=== PATIENT | male | born 1980 | race Hispanic/Latino ===

== ENCOUNTER 2016-09-19 14:28 | Emergency (ER) | payer OTHER ==
[~2016-09-19] VITALS: Ht 157.5 cm; Wt 127.0 kg
--- NOTE | 2016-09-19 16:21 | ED GENERAL ADULT ---
History of Present Illness General Chief Complaint: General Adult Stated Complaint: CVS TOLD PT BP IS HIGH COME TO ED Source: patient Exam Limitations: no limitations Allergies Coded Allergies: NO KNOWN ALLERGIES (03/10/12) Reconcile Medications Azithromycin 250 MG TABLET 1 DP PO AD sinusitis 2 the first day followed by 1 for days 2-5 Labetalol HCl 200 MG TABLET 1 TAB PO BID hypertension Triage Note: SENT BY [facility] FOR HTN, (DIASTOLIC 120) PT HERE FOR NASAL CONGESTION, R EAR PAIN X 2 WEEKS, WITH WORSENING COUGH. Triage Nurses Notes Reviewed? yes HPI: This patient is a 36-year-old male presents to the emergency department today sent in by the [facility] for evaluation of elevated blood pressure, diastolic blood pressure reported to be 120. The patient reported that he went to the [facility] originally for evaluation of cough and left ear pain. The patient reported that approximately 2 weeks ago he started having right ear pain and was diagnosed with an ear infection. At that time he also had a cough productive of green sputum. He reported that he was started on an antibiotic which she finished last Thursday. He reported that the pain in his right ear resolved, but on Thursday he noticed pain in his left ear which gets up to a 7 out of 10, worse when he coughs. He reported that the pain is constant and nonradiating. The patient reported that his cough is currently dry and nonproductive. He did report nasal congestion. He reported that prior to his symptoms beginning 2 weeks ago, he was waking up in the middle the night with an occipital headache, but nothing over the last 2 weeks. He denied any visual changes, jaw pain, arm pain, numbness or tingling in his extremities, chest pain , difficulty breathing, abdominal pain, nausea, vomiting, constipation, diarrhea , or any other associated symptoms. (KALA RUSSELL,JORDAN) Vital Signs & Intake/Output Vital Signs & Intake/Output Vital Signs Date Time Temp Pulse Resp B/P Pulse O2 O2 Flow FiO2 Ox Delivery Rate 09/19 1912 92 138/86 09/19 1846 92 158/114 09/19 1802 97.1 98 16 168/116 09/19 1719 98 16 168/116 98 Room Air 09/19 1615 97.1 102 16 152/118 98 Room Air 09/19 1613 98 Room Air 09/19 1522 170/82 09/19 1519 98.5 101 18 166/119 94 Room Air Past History Travel History Traveled to [place] past 21 day No Medical History Any Pertinent Medical History? see below for history Neurological: NONE EENT: NONE Cardiovascular: NONE Respiratory: NONE Gastrointestinal: NONE Hepatic: NONE Renal: NONE Musculoskeletal: NONE Psychiatric: NONE Endocrine: NONE History of CDIFF: No Isolation History: Standard Surgical History Surgical History: non-contributory Psychosocial History What is your primary language Guyanese Tobacco Use: Current Daily Use Daily Tobacco Use Amount/Type: => 5 Cigarettes daily ETOH Use: occasional use Family History Hx Contributory? No (JORDAN ARMENDARIZ PA-C) Review of Systems Review of Systems Constitutional: Reports: no symptoms. EENTM: Reports: see HPI. Respiratory: Reports: see HPI. Cardiovascular: Reports: no symptoms. GI: Reports: no symptoms. Genitourinary: Reports: no symptoms. Musculoskeletal: Reports: no symptoms. Skin: Reports: no symptoms. Neurological/Psychological: Reports: see HPI. All Other Systems: Reviewed and Negative (JORDAN ARMENDARIZ PA-C) Physical Exam Physical Exam General Appearance: well developed/nourished, no apparent distress, alert, awake Comments: Well-developed well-nourished person in no acute distress HEENT: Normal EENT exam, head normocephalic, no tenderness to palpation over the scalp, moist mucous membranes PERRLA bilaterally. No papilledema on funduscopic examination bilaterally Mild pharyngeal injection with no oropharyngeal edema or lesions. No uvular shift or tonsillar exudates. No drooling or trismus Neck: Supple, no lymphadenopathy Back: Normal inspection Cardiovascular: Regular rate and rhythm with no murmurs, rubs, or gallops. No carotid bruits or JVD Respiratory: Chest nontender. No respiratory distress. Breath sounds clear to auscultation bilaterally with no wheezes, rales, or rhonchi Extremity: Normal and equal pulses Neuro: Alert oriented x3, cranial nerves II through XII grossly intact. Skin: No appreciable rash on exposed skin, skin is warm and dry. Psych: Mood and affect is normal Core Measures ACS in differential dx? Yes CVA/TIA Diagnosis: No Severe Sepsis Present: No Septic Shock Present: No (JORDAN ARMENDARIZ PA-C) Progress Differential Diagnoses I considered the following diagnoses in my evaluation of the patient: [Otitis media, otitis externa, mastoiditis, sinusitis, viral syndrome, ACS, hypertension , hypertensive urgency, hypertensive crisis, PE, strep pharyngitis] Diagnostic Imaging: Viewed by Me: Radiology Read. Discussed w/RAD: Radiology Read. CXR Impression: PATIENT: KEAL SINGH PRESENT AGE: 36 PATIENT ACCOUNT NO: [id number] : 81 LOCATION: [facility] ORDERING PHYSICIAN: JORDAN ARMENDARIZ PA-C SERVICE DATE: 09/19/16 EXAM TYPE: RAD - XRY-CHEST XRAY, PA AND LATERAL EXAMINATION: XR CHEST CLINICAL INFORMATION: Productive cough, hypertension. COMPARISON: None available. TECHNIQUE: PA and lateral views of the chest were obtained. FINDINGS: Exam is somewhat limited due to patient body habitus and technique. The cardiomediastinal silhouette is within normal limits. The lungs and pleural spaces appear clear. There is no evidence of pneumothorax or pulmonary edema. Included osseous structures appear largely unremarkable. IMPRESSION: No acute intrathoracic process is identified. DICTATED BY: EVA MILLER MD DATE/TIME DICTATED:09/19/161706 RN OTOLARYNGOLOGY: TAYLOR DATE/TIME TRANSCRIBED:09/19/161706 CONFIDENTIAL, DO NOT COPY WITHOUT APPROPRIATE AUTHORIZATION. <Electronically signed in Other Vendor System> SIGNED BY: EVA MILLER MD 09/19/161712 Initial ED EKG: normal axis, normal intervals, nonspecific ST T wave chg, sinus tachycardia, 100 bpm, ST abnormality in lead V3 Comments: 09/19/2016 5:57:27 PM: Troponin level not elevated. No increased white blood cell count. Rapid strep swab negative for strep pharyngitis. Patient is currently being given by mouth labetalol. Discussed this patient with Dr. Suazo. Reviewed this patient's EKG with Dr. Suazo as I didn't notice an abnormality in lead V3. Dr. Suazo discussed with me that this is likely a J-point abnormality and not true ST segment elevation. The patient is currently resting comfortably on the stretcher and in no acute distress. We will try to lower this patient's blood pressure and give him outpatient medication as well as follow-up with a hoop punch operator helper for stress test, echocardiogram, and possible hypertensive maintenance medication. (KALA RUSSELL,JORDAN) Plan of Care: Orders Procedure Date/time Status THROAT CULTURE W/QUICK STREP 01/27 1620 Active TROPONIN LEVEL 09/19 1615 Complete COMPREHENSIVE METABOLIC PANEL 09/19 1615 Complete CBC WITHOUT DIFFERENTIAL 09/19 161 Complete EKG 09/19 1529 Active Laboratory Tests 09/19/16 1616: Anion Gap 10, Estimated GFR > 60, BUN/Creatinine Ratio 12.5, Glucose 141 H, Calcium 8.9, Total Bilirubin 0.5, AST 27, ALT 51, Alkaline Phosphatase 94, Troponin I 0.02, Total Protein 6.8, Albumin 3.8, Globulin 3.0, Albumin/Globulin Ratio 1.3, CBC w Diff NO MAN DIFF REQ, RBC 5.67, MCV 85.2, MCH 28.6, RDW 14.1, MPV 8.1, Gran % 61.9, Lymphocytes % 29.5, Monocytes % 7.0, Eosinophils % 1.2, Basophils % 0.4, Absolute Granulocytes 5.1, Absolute Lymphocytes 2.4, Absolute Monocytes 0.6, Absolute Eosinophils 0.1, Absolute Basophils 0, PUBS MCHC 33.6 Departure Departure Disposition: HOME OR SELF CARE Condition: Stable Clinical Impression Primary Impression: Hypertension Qualifiers: Hypertension type: unspecified secondary hypertension Qualified Code: I15.9 - Secondary hypertension, unspecified Secondary Impressions: Sinusitis Qualifiers: Sinusitis location: unspecified location Chronicity: unspecified Qualified Code: J32.9 - Chronic sinusitis, unspecified Referrals: PATIENT HAS NO PRIMARY CARE DR (PCP/Family) EM RASCON MD Additional Instructions: Take antibiotic as prescribed. Take medication for blood pressure as prescribed. Please call the hoop punch operator helper whose information has been provided to you for further evaluation; you will likely need to be on a medication to control your blood pressure long-term. Please return for any worsening symptoms or concerns. Departure Forms: Customer Survey General Discharge Information Prescriptions: Current Visit Scripts Azithromycin 1 DP PO AD #6 TAB 2 the first day followed by 1 for days 2-5 Labetalol HCl 1 TAB PO BID #14 TAB (JORDAN ARMENDARIZ PA-C) PA/[employer] BUSINESS OBJECTS CONSULTANT Co-Sign Statement Statement: ED Attending supervision documentation- [] I saw and evaluated the patient. I have also reviewed all the pertinent lab results and diagnostic results. I agree with the findings and the plan of care as documented in the PA's/S[employer] BUSINESS OBJECTS CONSULTANT's documentation. [x] I have reviewed the ED Record and agree with the PA's/S[employer] BUSINESS OBJECTS CONSULTANT's documentation. [] Additions or exceptions (if any) to the PAs/S[employer] BUSINESS OBJECTS CONSULTANT's note and plan are summarized below: [] (MELI LOPEZ,VALE Cruz) Critical Care Note Critical Care Note Critical Care Time: non-applicable (KALA RUSSELL,JORDAN)
[2016-09-19 16:25] LABS: ABSOLUTE BASOPHIL COUNT 0 /CUMM (0.0-0.2); ABSOLUTE EOSINOPHIL COUNT 0.1 /CUMM (0.0-0.7); ABSOLUTE GRANULOCYTE CT 5.1 /CUMM (1.4-6.5); ABSOLUTE LYMPH COUNT 2.4 /CUMM (1.2-3.4); ABSOLUTE MONOCYTE COUNT 0.6 /CUMM (0.10-0.60); BASOPHIL % 0.4 % (0.0-2.0); EOSINOPHIL % 1.2 % (0-5); GRANULOCYTE % 61.9 % (42.2-75.2); HEMATOCRIT 48.3 % (42-52); MEAN CORPUSCULAR HGB 28.6 PG (27.0-31.0); MEAN CORPUSCULAR HGB CONC 33.6 G/DL (33.0-37.0); MEAN CORPUSCULAR VOLUME 85.2 FL (80.0-94.0); MEAN PLATELET VOLUME 8.1 FL (7.4-10.4); PLATELET COUNT 279 /CUMM (130-400); RBC DISTRIBUTION WIDTH 14.1 % (11.5-14.5); RED BLOOD CELL CT 5.67 /CUMM (4.70-6.10); WHITE BLOOD CELL COUNT 8.3 /CUMM (4.8-10.8)
--- NOTE | 2016-09-19 17:13 | RADIOLOGY REPORT ---
EXAMINATION: XR CHEST CLINICAL INFORMATION: Productive cough, hypertension. COMPARISON: None available. TECHNIQUE: PA and lateral views of the chest were obtained. FINDINGS: Exam is somewhat limited due to patient body habitus and technique. The cardiomediastinal silhouette is within normal limits. The lungs and pleural spaces appear clear. There is no evidence of pneumothorax or pulmonary edema. Included osseous structures appear largely unremarkable. IMPRESSION: No acute intrathoracic process is identified.
[2016-09-19 19:12] VITALS: BP 138/86
[2016-09-19] MEDS ORDERED: LABETALOL HCL200 M1 PO (19:20)
[2016-09-19] MEDS ORDERED: AZITHROMYCIN250 M1 PO (19:20)
== END 2016-09-19 19:39 ==
LOC: ERH 14:28
PROVIDERS: Physician Assistant
DX: I10 Essential (primary) hypertension (principal); J32.9 Chronic sinusitis, unspecified; Z72.0 Tobacco use
CPT/HCPCS: 93005; 93010

== ENCOUNTER 2016-10-23 16:54 | Emergency (ER) | payer OTHER ==
[~2016-10-23] VITALS: Ht 157.5 cm; Wt 127.0 kg
[~2016-10-23 16:54] MED LIST: AZITHROMYCIN250 M1 PO; LABETALOL HCL200 M1 PO
--- NOTE | 2016-10-23 17:49 | ED INFLUENZA/URI COMPLAINT ---
History of Present Illness General Chief Complaint: Upper Respiratory Sx/Fever Stated Complaint: BODYACHES, COUGH, CONGESTION Source: patient Exam Limitations: no limitations Vital Signs & Intake/Output Vital Signs & Intake/Output Vital Signs Date Time Temp Pulse Resp B/P Pulse O2 O2 Flow FiO2 Ox Delivery Rate 10/23 1804 100.1 103 24 146/62 95 Room Air 10/23 1742 Room Air 10/23 1702 100.0 109 26 168/104 94 Room Air Allergies Coded Allergies: NO KNOWN ALLERGIES (10/23/16) Reconcile Medications Albuterol Sulfate (Ventolin Hfa) 90 MCG HFA.AER.AD 2 PUF INH Q4-6 PRN PRN SHORTNESS OF BREATH Azithromycin (Zithromax) 500 MG TABLET 1 TAB PO DAILY BRONCHITIS Azithromycin 250 MG TABLET 1 DP PO AD sinusitis 2 the first day followed by 1 for days 2-5 Benzonatate (Tessalon Perle) 100 MG CAPSULE 1 CAP PO TID PRN COUGH Labetalol HCl 200 MG TABLET 1 TAB PO BID hypertension Methylprednisolone. (Medrol) 4 MG TAB.DS.PK 1 DP PO AD INFLAMMATION 6 on day 1 then reduce by one tablet daily until gone Robitussin AC (Guaifenesin-Codeine Syrup) 200 MG-20 MG/10 ML LIQUID 10 ML PO QPM PRN COUGH Triage Note: TRIAGE: PT TO ER C/C PRODUCTIVE COUGH WITH WHITE PHLEGM REPORTED, FEVER, BODY ACHES. X 2 DAYS. LAST DOSE OF TYLENOL 08:00. TEMP 100.0 AT TRIAGE. Triage Nurses Notes Reviewed? yes Onset: Gradual Timing: recent history Severity: moderate Severity Numbers: 5 HPI: Patient is a 36-year-old male who presents emergency room with a 2 DAY history of gradual onset of productive white cough, sore throat, fevers and chills, pleuritic chest pain. Patient is an every day smoker. Denies any similar sick contacts. Denies any chest pain and arm pain jaw pain Positive for body aches Patient can tolerate by mouth Past History Travel History Traveled to [place] past 21 day No Medical History Any Pertinent Medical History? 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 No Review of Systems Review of Systems Constitutional: Reports: see HPI, chills, fever. EENTM: Reports: see HPI. Respiratory: Reports: see HPI, cough. Cardiovascular: Reports: no symptoms. GI: Reports: no symptoms. Genitourinary: Reports: no symptoms. Musculoskeletal: Reports: see HPI. Skin: Reports: no symptoms. Neurological/Psychological: Reports: no symptoms. Hematologic/Endocrine: Reports: no symptoms. Immunologic/Allergic: Reports: no symptoms. All Other Systems: Reviewed and Negative Physical Exam Physical Exam General Appearance: no apparent distress, alert Ears, Nose, Throat: normal ENT inspection, moist mucous membrane, hearing grossly normal, Tympanic normal, pharynx normal Comments: Well-developed well-nourished person in no acute distress HEENT: Normal EENT exam, extraocular motion intact, no nystagmus. Pupils equally round and reactive to light and accommodation. Nose is atraumatic. External auditory canal and Tympanic membranes clear. Pharynx normal. No swelling or edema. Neck: Supple, no lymphadenopathy, normal range of motion without pain or tenderness Back: Nontender, no CVA tenderness. Cardiovascular: Regular rate and rhythms no murmurs rubs or gallops, normal JVP Respiratory: Chest nontender. No respiratory distress.breath sounds clear to auscultation bilaterally Abdomen: Soft, nontender nondistended, no appreciable organomegaly. Normal bowel sounds. No ascites Extremity: No edema, no calf tenderness to palpation, normal and equal pulses. Neuro: Alert oriented x3, motor sensory normal, Skin: No appreciable rash on exposed skin, skin is warm and dry. Psych: Mood and affect is normal, memory and judgment is normal. Core Measures Severe Sepsis Present: No Septic Shock Present: No Progress Differential Diagnosis: influenza, meningitis, neutropenia, otitis, pneumonia, pharyngitis, sinusitis Plan of Care: Orders Procedure Date/time Status RAPID VIRAL INFLUENZA A 10/23 1706 Complete Microbiology 10/23 1709 NASOPHARYN: Influenza Virus A & B Rapid Smear - COMP Patient was noted to have cough and low-grade fever influenza test was negative. Patient will be treated for concerns of bronchitis. Clear lungs auscultation. Nontoxic-appearing (QUIQUE MACK,HUBER) Initial ED EKG: none Departure Departure Disposition: HOME OR SELF CARE Condition: Stable Clinical Impression Primary Impression: Upper respiratory infection Referrals: PATIENT HAS NO PRIMARY CARE DR (PCP/Family) Additional Instructions: As discussed begin drinking plenty of water for hydration. Begin over-the- counter Tylenol for fevers and Motrin for pain as directed. Begin the prescription for Tessalon Perles for cough, Robitussin with codeine for cough and Medrol Dosepak for inflammation. Begin the prescription of azithromycin for the full course and Ventolin inhaler for shortness of breath. If symptoms worsen return to emergency room. If no better on Thursday follow-up with your primary care doctor. Prescription is waiting a [facility] pharmacy Departure Forms: Customer Survey General Discharge Information Prescriptions: Current Visit Scripts Benzonatate (Tessalon Perle) 1 CAP PO TID PRN COUGH #21 CAP Robitussin AC (Guaifenesin-Codeine Syrup) 10 ML PO QPM PRN COUGH #100 ML Azithromycin (Zithromax) 1 TAB PO DAILY #5 TAB Albuterol Sulfate (Ventolin Hfa) 2 PUF INH Q4-6 PRN PRN SHORTNESS OF BREATH #1 INHAL Methylprednisolone. (Medrol) 1 DP PO AD #1 DP 6 on day 1 then reduce by one tablet daily until gone
[2016-10-23 18:04] VITALS: BP 146/62
[2016-10-23] MEDS ORDERED: GUAIFENESIN-COD10 ML PO (18:08)
[2016-10-23] MEDS ORDERED: MEDROL4 M2 PO (18:08)
[2016-10-23] MEDS ORDERED: VENTOLIN HFA18 GM INH (18:08)
[2016-10-23] MEDS ORDERED: ZITHROMAX500 M2 PO (18:08)
[2016-10-23] MEDS ORDERED: TESSALON PERLE100 M1 PO (18:08)
== END 2016-10-23 18:27 ==
LOC: ERH 16:54
DX: J06.9 Acute upper respiratory infection, unspecified (principal); Z72.0 Tobacco use
CPT/HCPCS: 87804; 87804-59

== ENCOUNTER 2018-01-01 09:48 | Emergency (ER) | payer OTHER ==
[~2018-01-01] VITALS: Ht 157.5 cm; Wt 121.6 kg
[~2018-01-01 09:48] MED LIST changes: +GUAIFENESIN-COD10 ML PO; +LISINOPRIL10 M1 PO; +MEDROL4 M2 PO; +NORVASC10 M1 PO; +TESSALON PERLE100 M1 PO; +VENTOLIN HFA18 GM INH; +ZITHROMAX500 M2 PO
[2018-01-01 09:52] VITALS: BP 194/139
--- NOTE | 2018-01-01 10:52 | ED DYSPNEA/ASTHMA COMPLAINT ---
History of Present Illness General Chief Complaint: Wheezing/Asthma Stated Complaint: INCREASE IN ASTHMA SYMPTOMS Source: patient Exam Limitations: no limitations Vital Signs & Intake/Output Vital Signs & Intake/Output Vital Signs Date Time Temp Pulse Resp B/P B/P Pulse O2 O2 Flow FiO2 Mean Ox Delivery Rate 01/01 1042 96 Room Air Room Air 01/01 0952 97.0 95 20 194/139 95 Room Air Room Air Allergies Coded Allergies: No Known Allergies (01/01/18) Reconcile Medications No Known Home Medications Triage Note: PT TO ED FOR C/C OF DIFFICULTY BREATHING SINCE YESTERDAY. DENIES COUGH, FEVER, CHILLS. HAD SOME CHEST PAIN THIS MORNING AROUND 0300, TOOK "ADULT ASPIRIN" AND PAIN IS BETTER. CURRENTLY ONLY HAS PAIN ON PALPATION. O2 SAT 95% IN TRIAGE. Triage Nurses Notes Reviewed? yes HPI: Patient presents for evaluation of worsening moderate to severe shortness of breath secondary to asthma over the past 2 days. Patient states he got worse overnight and included wheezing and chest pain, symptoms typical of his asthma. He denies any associated fever or cold symptoms. He states due to a loss of his insurance he has been unable to refill his prescriptions for his asthma medication. In addition he states he is unable to take his hypertension medicines and his diabetes medicines. Patient's shortness of breath worsens with exertion and nothing seems to make him feel better at this point. Past History Travel History Traveled to [place] past 21 day No Medical History Any Pertinent Medical History? 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 No Review of Systems Review of Systems Constitutional: Reports: no symptoms. EENTM: Reports: no symptoms. Respiratory: Reports: see HPI. Cardiovascular: Reports: no symptoms. GI: Reports: no symptoms. Genitourinary: Reports: no symptoms. Musculoskeletal: Reports: no symptoms. Skin: Reports: no symptoms. Neurological/Psychological: Reports: no symptoms. Hematologic/Endocrine: Reports: no symptoms. Immunologic/Allergic: Reports: no symptoms. All Other Systems: Reviewed and Negative Physical Exam Physical Exam Respiratory: see below Comments: Gen.: Well-nourished, well-developed, no acute respiratory distress. Head: Normocephalic, atraumatic. Eyes: Normal inspection bilaterally Ears: Normal inspection bilaterally Nose: Normal inspection Throat/mouth : Moist mucosa Neck: Supple, full range of motion, no goiter Heart: Regular rate and rhythm, no murmurs rubs or gallops Lungs: Clear to auscultation bilaterally with normal air entry Chest: Nontender Back: Normal range of motion Abdomen: Soft, nontender, nondistended, normal bowel sounds Extremities: Normal range of motion grossly, equal radial pulses, no cyanosis clubbing or edema Neurologic: Cranial nerves grossly intact, speech is clear Skin: warm and dry Psychiatric: Calm, cooperative, no apparent delusions or hallucinations Core Measures ACS in differential dx? No CVA/TIA Diagnosis No Sepsis Present: No Sepsis Focused Exam Completed? No Progress Differential Diagnosis: asthma, pneumonia, bronchitis, viral syndrome Plan of Care: Orders Procedure Date/time Status EKG 01/01 955 Active Initial ED EKG: none Comments: Patient declined evaluation and/or treatment in the emergency department due to financial considerations. Departure Departure Disposition: HOME OR SELF CARE Condition: Stable Clinical Impression Primary Impression: Asthma exacerbation Referrals: Sebastian LOPEZ,Colton Wolfe (PCP/Family) Additional Instructions: Rest, no exertion. Departure Forms: Customer Survey General Discharge Information Prescriptions: Current Visit Scripts Albuterol Sulfate (Proair Hfa) 2 INH INH Q6P PRN ASTHMA #1 INHAL Metformin HCl (Metformin HCl ER) 1 TAB PO DAILY #30 TAB Losartan Potassium 1 TAB PO DAILY #30 TAB Critical Care Note Critical Care Note Critical Care Time: non-applicable
[2018-01-01] MEDS ORDERED: PROAIR HFA8.5 GM INH (11:01)
[2018-01-01] MEDS ORDERED: LOSARTAN POTASS50 M1 PO (11:01)
[2018-01-01] MEDS ORDERED: METFORMIN HCL500 M2 PO (11:01)
== END 2018-01-01 11:07 ==
LOC: ERH 09:48
DX: J45.901 Unspecified asthma with (acute) exacerbation (principal); F17.210 Nicotine dependence, cigarettes, uncomplicated; R06.02 Shortness of breath
CPT/HCPCS: 93005; 93010

== ENCOUNTER 2018-05-09 08:11 | Inpatient (IN) | payer SELFPAY ==
[~2018-05-09] VITALS: Ht 157.5 cm; Wt 138.8 kg
[~2018-05-09 08:11] MED LIST changes: +COZAAR50 M1 PO; +LOSARTAN POTASS50 M1 PO; +METFORMIN HCL500 M2 PO; +PREDNISONE50 M1 PO; +PROAIR HFA8.5 GM INH; +PROVENTIL HFA6.7 GM INH; +ZITHROMAX250 M2 PO
[2018-05-09 09:10] LABS: ABSOLUTE BASOPHIL COUNT 0 /CUMM (0.0-0.2); ABSOLUTE EOSINOPHIL COUNT 0 /CUMM (0.0-0.7); ABSOLUTE GRANULOCYTE CT 7.9 /CUMM (1.4-6.5); ABSOLUTE LYMPH COUNT 1.3 /CUMM (1.2-3.4); ABSOLUTE MONOCYTE COUNT 0.6 /CUMM (0.10-0.60); BASOPHIL % 0.3 % (0.0-2.0); EOSINOPHIL % 0.5 % (0-5); GRANULOCYTE % 79.4 % (42.2-75.2); HEMATOCRIT 47.1 % (42-52); MEAN CORPUSCULAR HGB 27.2 PG (27.0-31.0); MEAN CORPUSCULAR HGB CONC 32.6 G/DL (33.0-37.0); MEAN CORPUSCULAR VOLUME 83.3 FL (80.0-94.0); MEAN PLATELET VOLUME 8.3 FL (7.4-10.4); PLATELET COUNT 260 /CUMM (130-400); RBC DISTRIBUTION WIDTH 15.2 % (11.5-14.5); RED BLOOD CELL CT 5.65 /CUMM (4.70-6.10); WHITE BLOOD CELL COUNT 9.9 /CUMM (4.8-10.8)
--- NOTE | 2018-05-09 10:09 | RADIOLOGY REPORT ---
EXAMINATION: XR CHEST CLINICAL INFORMATION: Cough, shortness of breath, fever and leg edema. COMPARISON: CXR from 09/19/2016 and 04/15/2018. Chest CT from 04/08/2017. TECHNIQUE: 2 views of the chest were obtained. FINDINGS: Lungs are well expanded. The bronchial constantino are thickened, bilaterally. This could be a manifestation of asthma or airway infection, if in the right clinical context. Patchy opacity is present within the right middle lobe, suggestive of pneumonia. No pneumothorax or pleural effusion. Cardiomediastinal silhouette is chronically enlarged. The visualized bones are intact. IMPRESSION: - Bronchial wall thickening in both lungs from inflammation or infection of the airways. - Patchy opacity in right middle lobe is consistent with pneumonia.
--- NOTE | 2018-05-09 10:24 | ED DYSPNEA/ASTHMA COMPLAINT ---
History of Present Illness General Chief Complaint: Wheezing/Asthma Stated Complaint: INCREASE IN ASTHMA SYMPTOMS Source: patient, old records Exam Limitations: no limitations Vital Signs & Intake/Output Vital Signs & Intake/Output Vital Signs Date Time Temp Pulse Resp B/P B/P Pulse O2 O2 Flow FiO2 Mean Ox Delivery Rate 05/09 1217 98.9 88 18 176/108 96 Nasal 3.0L Cannula 05/09 1130 98.2 19 97 Nasal 2.0L Cannula 05/09 1126 105 192/108 05/09 1055 99.0 94 22 196/106 94 Nasal 3.0L Cannula 05/09 0944 98.0 110 26 188/110 94 Nasal 3.0L Cannula 05/09 0943 98.0 05/09 0917 97 Nasal 3.0L Cannula 05/09 0914 96 Nasal 2.0L Cannula 05/09 0825 96 Nasal 2.0L Cannula 05/09 0819 100.0 120 20 170/120 91 Room Air Allergies Coded Allergies: No Known Allergies (01/01/18) Reconcile Medications Albuterol Sulfate (Proventil Hfa) 90 MCG HFA.AER.AD 2 PUF INH Q4 sob Losartan Potassium (Cozaar) 50 MG TABLET 1 TAB PO DAILY HIGH BLOOD PRESSURE Metformin HCl (Metformin HCl ER) 500 MG TAB.ER.24 1 TAB PO DAILY DIABITIES Triage Note: PT TO ED C/O INCREASE IN ASTHMA S/S. C/O PRODUCTIVE COUGH. RA SAT 90%, HEARTRATE 120. PT HAS INHALER AT HOME, HAS USED WITH NO RELIEF. C/O B/L LE SWELLING. O2, SATS UP TO 96%. Triage Nurses Notes Reviewed? yes Onset: Abrupt Duration: day(s): (2-3), constant, continues in ED, getting worse Timing: recent history Severity: moderate, severe Activities at Onset: activity Prior Episodes/Possible Cause: frequent episodes HPI: 38-year-old male history of hypertension, asthma, [id number] diabetes presents for evaluation of cough, fever, shortness of breath and weakness. Patient reports symptoms have been going on for the past 2 or 3 days. He's been using his inhaler at home without any improvement. He started having fevers yesterday and today. He denies any chest pain or hemoptysis. He does note some mild bilateral lower extension edema which she's had in the past. He has no documented history of heart failure. He quit smoking 2 months ago. He states he is posted be taking losartan for his blood pressure but has not yet taken it today. No dizziness or lightheadedness. He is recently treated for an asthma exacerbation a few weeks ago. Cough is productive of green sputum. Past History Travel History Traveled to [place] past 21 day No Medical History Any Pertinent Medical History? 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 No Review of Systems Review of Systems Constitutional: Reports: chills, diaphoresis, fever, malaise, weakness. EENTM: Reports: no symptoms. Respiratory: Reports: see HPI, cough, short of breath, sputum production, wheezing. Cardiovascular: Reports: no symptoms. GI: Reports: no symptoms. Genitourinary: Reports: no symptoms. Musculoskeletal: Reports: no symptoms. Skin: Reports: no symptoms. Neurological/Psychological: Reports: no symptoms. Hematologic/Endocrine: Reports: no symptoms. Immunologic/Allergic: Reports: no symptoms. All Other Systems: Reviewed and Negative Physical Exam Physical Exam General Appearance: well developed/nourished, no apparent distress, alert, awake , obese Head: atraumatic, normal appearance Eyes: Bilateral: normal appearance, PERRL, EOMI. Ears, Nose, Throat: normal pharynx, normal ENT inspection, hearing grossly normal Neck: normal inspection, supple, full range of motion Respiratory: chest non-tender, no respiratory distress, rhonchi, wheezing Cardiovascular: normal peripheral pulses, tachycardia Peripheral Pulses: 2+ radial (R), 2+ radial (L) Gastrointestinal: soft, non-tender Extremities: normal inspection, normal range of motion, no edema Neurologic/Psych: no motor/sensory deficits, awake, alert, oriented x 3, normal gait, normal mood/affect Skin: intact, normal color, warm/dry Core Measures ACS in differential dx? No CVA/TIA Diagnosis No Sepsis Present: No Sepsis Focused Exam Completed? No Progress Differential Diagnosis: asthma, AMI, bronchitis, CHF, COPD, pulmonary embolism, pneumonia, pneumothorax, unstable angina Plan of Care: Orders Procedure Date/time Status Heart Healthy Diet 05/09 D Active Misc Message 05/09 1221 Active ED Holding Orders 05/09 1221 Active Admit to inpatient 05/09 1221 Active Vital Signs 05/09 1221 Active Code Status 05/09 1221 Active Add-on Test (ER Only) 05/09 0906 Active Add-on Test (ER Only) 05/09 0903 Active MAGNESIUM 05/09 0853 Complete D-DIMER 05/09 0853 Complete CULTURE,URINE 05/09 0850 Active BLOOD CULTURE 05/09 0850 Active URINALYSIS 05/09 0850 Active TROPONIN LEVEL 05/09 0850 Complete COMPREHENSIVE METABOLIC PANEL 05/09 0850 Complete CBC WITHOUT DIFFERENTIAL 05/09 0850 Complete B-TYPE NATRIURETIC PEP (BNP) 05/09 0850 Complete EKG 05/09 0846 Active Laboratory Tests 05/09/18 1141: Urine Color Pending, Urine Clarity Pending, Urine pH Pending, Ur Specific [place] Pending, Urine Protein Pending, Urine Ketones Pending, Urine Nitrite Pending, Urine Bilirubin Pending, Urine Urobilinogen Pending, Ur Leukocyte Esterase Pending, Ur Microscopic SEDIMENT EXAMINED, Urine RBC Pending, Urine Hemoglobin Pending, Urine Glucose Pending 05/09/18 0936: Anion Gap 8, Estimated GFR > 60, BUN/Creatinine Ratio 13.8, Glucose 187 H, Calcium 8.3 L, Magnesium 1.6, Total Bilirubin 1.1, AST 27, ALT 34, Alkaline Phosphatase 69, Troponin I 0.04, Mdw-W-Mkzbpdmjwar Pept 2460 H, Total Protein 5.8 L, Albumin 3.2 L, Globulin 2.6, Albumin/Globulin Ratio 1.2 05/09/18 0853: D-Dimer High Sensitivty 321 H, CBC w Diff NO MAN DIFF REQ, RBC 5.65, MCV 83.3, MCH 27.2, MCHC 32.6 L, RDW 15.2 H, MPV 8.3, Gran % 79.4 H, Lymphocytes % 13.4 L, Monocytes % 6.4, Eosinophils % 0.5, Basophils % 0.3, Absolute Granulocytes 7.9 H, Absolute Lymphocytes 1.3, Absolute Monocytes 0.6, Absolute Eosinophils 0 , Absolute Basophils 0 Microbiology 05/09 1141 URINE ROUT: Urine Culture - RECD 05/09 936 BLOOD: Blood Culture - RECD 05/09 908 BLOOD: Blood Culture - RECD Patient is here for evaluation of cough shortness of breath and fever. Initial examination he is tachycardic to 120s oxygen saturation 90% on room air and he has diffuse wheezing and rhonchi. Labs EKG chest x-rays ordered. Patient medicated with DuoNeb IV Solu-Medrol and IV Tylenol. X-rays positive for a pneumonia. Patient was started on Zithromax and ceftriaxone. Blood cultures were ordered. Patient is significantly hypertensive and has not yet taken his medications today. He was given his oral losartan and a dose of IV Vasotec. D-dimer is elevated a CTA was obtained and is negative for PE. Patient was ambulated in the emergency department and is desaturating to 89% on room air he becomes visibly dyspneic. Patient will require admission for IV antibiotics and IV steroids pulmonology consult cardiology consult telemetry IV antihypertensives and medication adjustment case discussed with Dr. Suazo he agrees Diagnostic Imaging: Viewed by Me: Radiology Read. Discussed w/RAD: Radiology Read. Radiology Impression: PATIENT: KAEL SINGH PRESENT AGE: 38 PATIENT ACCOUNT NO: [id number] : 81 LOCATION: [facility] ORDERING PHYSICIAN: Aris MACK SERVICE DATE: 05/09/18 EXAM TYPE: CAT - CTA CHEST-PULMONARY EMBOLISM EXAMINATION: CT ANGIOGRAM OF THE CHEST WITH CONTRAST (CT PULMONARY ANGIOGRAM FOR PE) CLINICAL INFORMATION: Shortness of breath, fever and cough. COMPARISON: Chest CT from 04/08/2017. Prior chest radiographs, including 05/09/2018. TECHNIQUE: Prior to contrast administration, noncontrast localization images were obtained. Subsequently, multidetector volumetric imaging was performed from the thoracic inlet to below the diaphragms following the administration of 95 mL Optiray 320 intravenous contrast. No contrast reaction reported. Sagittal, coronal, and MIP oblique sagittal reformatted images were obtained on the CT workstation, uploaded to PACS, and reviewed. DLP: Total exam dose-length product 917 mGy-cm FINDINGS: QUALITY OF STUDY/CONTRAST BOLUS: Satisfactory. PULMONARY ARTERIES: The pulmonary arteries are normal in size. No embolic filling defects are identified within the main, lobar or segmental vessels. THORACIC AORTA: Normal. LUNGS AND PLEURA: Diffuse thickening of bronchial constantino. Lungs have mosaic attenuation suggestive of air trapping phenomenon from small airways disease. Mild interlobular septal thickening and patchy, hazy opacities in upper lobes. Consolidation with air bronchograms of the lateral segment of the right middle lobe, consistent with pneumonia. Mild atelectasis in medial segment of right middle lobe. Also, opacities of atelectasis and/or consolidation are present in the anterior right lower lobe and left lower lobe extending along the distal left major fissure. Trace right pleural effusion is present. No pneumothorax. CARDIOVASCULAR: The heart size is normal. No inward bowing of the interventricular septum. No pericardial effusion. MEDIASTINUM: Chronic prominence of the mediastinal fat. No mediastinal mass. The esophagus has normal wall thickness. The visualized portion of the thyroid gland is unremarkable. LYMPHATICS: No axillary lymphadenopathy. Mildly lymph nodes at both ju, similar compared to 2016. The largest right hilar lymph node is 1.6 cm short axis dimension, compared to 1.4 cm on 04/08/2017. 1.2 cm right paratracheal lymph node at the level of the top of the aortic arch is stable compared to 04/08/2017. Also, stable appearance of the chronically enlarged lymph nodes in the prevascular space, precarinal area and subcarinal area of the mediastinum. UPPER ABDOMEN: No acute findings. No reflux of contrast into the inferior vena cava. OSSEOUS STRUCTURES: No acute or suspicious osseous abnormality. IMPRESSION: - No evidence of pulmonary embolism. - Chronic and/or recurrent inflammation (or infection) of thickened airway constantino. Query if there is history of asthma. Lungs have mosaic attenuation, suggestive of air trapping phenomenon of small airways disease. Consolidation/pneumonia is present in the the lateral segment of the right middle lobe. Also, opacities from atelectasis and/or pneumonia are present within lower lobes. Trace right pleural effusion. - Chronic hilar and mediastinal lymphadenopathy -- similar in appearance compared to 04/08/2017. DICTATED BY: Philippe Sotomayor MD DATE/TIME DICTATED:09/16/18 / 1103 WATER METER MECHANIC:TAYLOR DATE/TIME TRANSCRIBED:05/09/181102 CONFIDENTIAL, DO NOT COPY WITHOUT APPROPRIATE AUTHORIZATION. CXR Impression: PATIENT: KAEL SINGH PRESENT AGE: 38 PATIENT ACCOUNT NO: [id number] : 81 LOCATION: [facility] ORDERING PHYSICIAN: Aris MACK SERVICE DATE: 05/09/18 EXAM TYPE: RAD - XRY-CHEST XRAY, TWO VIEWS EXAMINATION: XR CHEST CLINICAL INFORMATION: Cough, shortness of breath , fever and leg edema. COMPARISON: CXR from 09/19/2016 and 04/15/2018. Chest CT from 04/08/2017. TECHNIQUE: 2 views of the chest were obtained. FINDINGS: Lungs are well expanded. The bronchial constantino are thickened, bilaterally. This could be a manifestation of asthma or airway infection, if in the right clinical context. Patchy opacity is present within the right middle lobe, suggestive of pneumonia. No pneumothorax or pleural effusion. Cardiomediastinal silhouette is chronically enlarged. The visualized bones are intact. IMPRESSION: - Bronchial wall thickening in both lungs from inflammation or infection of the airways. - Patchy opacity in right middle lobe is consistent with pneumonia. DICTATED BY: Philippe Sotomayor MD DATE/TIME DICTATED:05/09/181001 WATER METER MECHANIC:TAYLOR DATE/ TIME TRANSCRIBED:05/09/181001 CONFIDENTIAL, DO NOT COPY WITHOUT APPROPRIATE AUTHORIZATION. <Electronically signed in Other Vendor System> SIGNED BY: Philippe Sotomayor MD 05/09/18 1009 Initial ED EKG: normal sinus rhythm, no ST T wave changes, left atrial abn Departure Departure Disposition: HOME OR SELF CARE Condition: Stable Clinical Impression Primary Impression: Pneumonia Qualifiers: Pneumonia type: due to unspecified organism Laterality: right Lung location: unspecified part of lung Qualified Code: J18.9 - Pneumonia, unspecified organism Secondary Impressions: Hypertensive urgency Referrals: Patient Has No Primary Care Dr (PCP/Family) Departure Forms: Customer Survey General Discharge Information Admission Note Spoke With: Db Valentin MD Documentation of Exam: Documentation of any treatments & extenuating circumstances including Concerns Regarding Discharge (functional status, medication knowledge or non-compliance, living conditions, etc.) that warrant an admission rather than observation: [ Patient is desaturating to 89% on room air with a diagnosis of asthma and pneumonia. He is also significant hypertensive despite IV and oral medications. He will require admission for IV antibiotics IV steroids DuoNeb serial labs telemetry serial EKGs IV blood pressure control medication adjustment cardiology consult echocardiogram serial chest x-rays] Critical Care Note Critical Care Note Critical Care Time: 75-104 min ED Attending Observation Initial Observation Note: I have seen and personally examined KAEL SINGH on 05/09/18 at 1224. I agree with the current emergency department documentation. The disposition (admission or discharge) is uncertain at this time, he needs a period of observation for the following reason(s): The ED Nurse caring for this patient has been personally informed as to what the patient is being observed for.
--- NOTE | 2018-05-09 11:19 | CT SCAN REPORT ---
EXAMINATION: CT ANGIOGRAM OF THE CHEST WITH CONTRAST (CT PULMONARY ANGIOGRAM FOR PE) CLINICAL INFORMATION: Shortness of breath, fever and cough. COMPARISON: Chest CT from 04/08/2017. Prior chest radiographs, including 05/09/2018. TECHNIQUE: Prior to contrast administration, noncontrast localization images were obtained. Subsequently, multidetector volumetric imaging was performed from the thoracic inlet to below the diaphragms following the administration of 95 mL Optiray 320 intravenous contrast. No contrast reaction reported. Sagittal, coronal, and MIP oblique sagittal reformatted images were obtained on the CT workstation, uploaded to PACS, and reviewed. DLP: Total exam dose-length product 917 mGy-cm FINDINGS: QUALITY OF STUDY/CONTRAST BOLUS: Satisfactory. PULMONARY ARTERIES: The pulmonary arteries are normal in size. No embolic filling defects are identified within the main, lobar or segmental vessels. THORACIC AORTA: Normal. LUNGS AND PLEURA: Diffuse thickening of bronchial constantino. Lungs have mosaic attenuation suggestive of air trapping phenomenon from small airways disease. Mild interlobular septal thickening and patchy, hazy opacities in upper lobes. Consolidation with air bronchograms of the lateral segment of the right middle lobe, consistent with pneumonia. Mild atelectasis in medial segment of right middle lobe. Also, opacities of atelectasis and/or consolidation are present in the anterior right lower lobe and left lower lobe extending along the distal left major fissure. Trace right pleural effusion is present. No pneumothorax. CARDIOVASCULAR: The heart size is normal. No inward bowing of the interventricular septum. No pericardial effusion. MEDIASTINUM: Chronic prominence of the mediastinal fat. No mediastinal mass. The esophagus has normal wall thickness. The visualized portion of the thyroid gland is unremarkable. LYMPHATICS: No axillary lymphadenopathy. Mildly lymph nodes at both ju, similar compared to 04/08/2017. The largest right hilar lymph node is 1.6 cm short axis dimension, compared to 1.4 cm on 04/08/2017. 1.2 cm right paratracheal lymph node at the level of the top of the aortic arch is stable compared to 04/08/2017. Also, stable appearance of the chronically enlarged lymph nodes in the prevascular space, precarinal area and subcarinal area of the mediastinum. UPPER ABDOMEN: No acute findings. No reflux of contrast into the inferior vena cava. OSSEOUS STRUCTURES: No acute or suspicious osseous abnormality. IMPRESSION: - No evidence of pulmonary embolism. - Chronic and/or recurrent inflammation (or infection) of thickened airway constantino. Query if there is history of asthma. Lungs have mosaic attenuation, suggestive of air trapping phenomenon of small airways disease. Consolidation/pneumonia is present in the the lateral segment of the right middle lobe. Also, opacities from atelectasis and/or pneumonia are present within lower lobes. Trace right pleural effusion. - Chronic hilar and mediastinal lymphadenopathy -- similar in appearance compared to 04/08/2017.
--- NOTE | 2018-05-09 12:41 | History & Physical ---
General Information and HPI MD Statement: I have seen and personally examined KAEL SINGH and documented this H&P. The patient is a 38 year old M who presented with a patient stated chief complaint of dyspnea. Source of Information: patient Exam Limitations: no limitations History of Present Illness: 38-year-old male history of hypertension, asthma, [id number] diabetes presents for evaluation of 2-day hx of cough, dyspnea on exertion and weakness. He denies any fever, but endorses some chills. No recent URI or sick contacts. He describes his cough as productive with yellowish sputum. Other symptoms include increased lower extremity swelling and orthopnea in the past which he reports to be subacute for weeeks. He denies chest pain or palpitations. He states that he has been using his albuterol rescue inhaler on a daily basis in the past 1 week. Of note, he has been to [facility] twice in the past 3 months with similar symptoms and was sent home with steroids and nebulizers. He does not f/u with any line prep cook, he denies any episode of asthma exacerbation that required intubation. He was last admitted at [facility] 2016 for dyspnea and chest pressure. Allergies/Medications Allergies: Coded Allergies: No Known Allergies (01/01/18) Home Med list Albuterol Sulfate (Proventil Hfa) 90 MCG HFA.AER.AD 2 PUF INH Q4 sob Losartan Potassium (Cozaar) 50 MG TABLET 1 TAB PO DAILY HIGH BLOOD PRESSURE Metformin HCl (Metformin HCl ER) 500 MG TAB.ER.24 1 TAB PO DAILY DIABITIES Past History Travel History Traveled to [place] past 21 day No Medical History Neurological: NONE EENT: NONE Cardiovascular: hypertension Respiratory: asthma Gastrointestinal: NONE Hepatic: NONE Renal: NONE Musculoskeletal: NONE Psychiatric: NONE Endocrine: DMII Blood Disorders: NONE Cancer(s): NONE DINING HOST/Reproductive: NONE History of MRSA: No History of VRE: No History of CDIFF: No Surgical History Surgical History: none Past Family/Social History Family History Relations & Conditions if any FATHER (MOTHER ( Psychosocial History Services at Home: None ETOH Use: denies use Illicit Drug Use: denies illicit drug use Functional Ability ADLs Independent: dressing, eating, toileting, bathing. Ambulation: independent IADLs Independent: shopping, housework, finances, food prep, telephone, transportation , medication admin. Review of Systems Review of Systems Constitutional: Reports: diaphoresis, malaise. Cardiovascular: Reports: edema. Respiratory: Reports: cough, short of breath, sputum production. GI: Reports: no symptoms. Genitourinary: Reports: no symptoms. Musculoskeletal: Reports: no symptoms. Skin: Reports: no symptoms. Neurological/Psychological: Reports: no symptoms. Hematologic/Endocrine: Reports: no symptoms. Immunologic/Allergic: Reports: no symptoms. All Other Systems: Reviewed and Negative Exam & Diagnostic Data Last 24 Hrs of Vital Signs/I&O Vital Signs Date Time Temp Pulse Resp B/P B/P Pulse O2 O2 Flow FiO2 Mean Ox Delivery Rate 05/09 1355 97.7 87 18 160/74 96 Nasal 2.0L Cannula 05/09 1305 98.4 89 18 145/87 96 Nasal 2.0L Cannula 05/09 1300 102 178/109 05/09 1235 168/108 05/09 1217 98.9 88 18 176/108 96 Nasal 3.0L Cannula 05/09 1130 98.2 19 97 Nasal 2.0L Cannula 05/09 1126 105 192/108 05/09 1055 99.0 94 22 196/106 94 Nasal 3.0L Cannula 05/09 0944 98.0 110 26 188/110 94 Nasal 3.0L Cannula 05/09 0943 98.0 05/09 0917 97 Nasal 3.0L Cannula 05/09 0914 96 Nasal 2.0L Cannula 05/09 0825 96 Nasal 2.0L Cannula 05/09 0819 100.0 120 20 170/120 91 Room Air Intake & Output 05/09 1600 05/09 0800 05/09 0000 Intake Total Output Total 250 Balance -250 Output, Urine 250 Patient 121.563 kg Weight Weight Estimated Measurement Method Physical Exam General Appearance Alert, Oriented X3, Cooperative, mildly diaphoretic, morbidly obese Skin No Breakdown, No Significant Lesion Skin Temp/Moisture Exam: Warm/Dry Sepsis Skin Exam (color): Normal for Ethnicity HEENT Atraumatic, Mucous Membr. moist/pink Neck Supple, No JVD Lymphatic Cervical nl Cardiovascular Normal S1, Normal S2 Lungs mild rhonchi b/l (this after treatment with solumedrol and nebs) Abdomen Normal Bowel Sounds, Soft, No Tenderness Neurological Normal Gait, Normal Speech, Normal Tone, Sensation Intact Extremities No Clubbing, No Cyanosis, No Edema, Normal Pulses, +2 edema b/l Vascular Pulses Symmetrical Sepsis Peripheral Pulse Location: Dorsalis Pedis Sepsis Peripheral Pulse Exam: Normal Sepsis Cap Refill Exam: <2 Sec Last 24 Hrs of Labs/Ulisses: Laboratory Tests 05/09/18 1141: Urinalysis LIGHT H, Urine Color YEL, Urine Clarity CLEAR, Urine pH 6.5, Ur Specific [place] 1.025, Urine Protein >=300 H, Urine Ketones NEG, Urine Nitrite NEG, Urine Bilirubin NEG, Urine Urobilinogen 0.2, Ur Leukocyte Esterase NEG, Ur Microscopic SEDIMENT EXAMINED, Urine RBC 1-3, Urine WBC 3-5 H, Ur Epithelial Cells RARE, Granular Casts FEW H, Urine Mucus RARE, Urine Hemoglobin SMALL H, Urine Glucose NEG 05/09/18 0936: Anion Gap 8, Estimated GFR > 60, BUN/Creatinine Ratio 13.8, Glucose 187 H, Calcium 8.3 L, Magnesium 1.6, Total Bilirubin 1.1, AST 27, ALT 34, Alkaline Phosphatase 69, Troponin I 0.04, Hsd-F-Jbixesaqpla Pept 2460 H, Total Protein 5.8 L, Albumin 3.2 L, Globulin 2.6, Albumin/Globulin Ratio 1.2 05/09/18 0853: D-Dimer High Sensitivty 321 H, CBC w Diff NO MAN DIFF REQ, RBC 5.65, MCV 83.3, MCH 27.2, MCHC 32.6 L, RDW 15.2 H, MPV 8.3, Gran % 79.4 H, Lymphocytes % 13.4 L, Monocytes % 6.4, Eosinophils % 0.5, Basophils % 0.3, Absolute Granulocytes 7.9 H, Absolute Lymphocytes 1.3, Absolute Monocytes 0.6, Absolute Eosinophils 0 , Absolute Basophils 0 Microbiology 05/09 1412 LOWER RESP: Respiratory Culture - ORD 05/09 1412 LOWER RESP: Gram Stain - ORD 05/09 1141 URINE ROUT: Urine Culture - RECD 05/09 936 BLOOD: Blood Culture - RECD 05/09 908 BLOOD: Blood Culture - RECD Diagnostic Data Other Results SERVICE DATE: 05/09/18-1004 EXAM TYPE: CAT - CTA CHEST-PULMONARY EMBOLISM EXAMINATION: CT ANGIOGRAM OF THE CHEST WITH CONTRAST (CT PULMONARY ANGIOGRAM FOR PE) CLINICAL INFORMATION: Shortness of breath, fever and cough. COMPARISON: Chest CT from 04/08/2017. Prior chest radiographs, including 05/09/2018. TECHNIQUE: Prior to contrast administration, noncontrast localization images were obtained. Subsequently, multidetector volumetric imaging was performed from the thoracic inlet to below the diaphragms following the administration of 95 mL Optiray 320 intravenous contrast. No contrast reaction reported. Sagittal, coronal, and MIP oblique sagittal reformatted images were obtained on the CT workstation, uploaded to PACS, and reviewed. DLP: Total exam dose-length product 917 mGy-cm FINDINGS: QUALITY OF STUDY/CONTRAST BOLUS: Satisfactory. PULMONARY ARTERIES: The pulmonary arteries are normal in size. No embolic filling defects are identified within the main, lobar or segmental vessels. THORACIC AORTA: Normal. LUNGS AND PLEURA: Diffuse thickening of bronchial constantino. Lungs have mosaic attenuation suggestive of air trapping phenomenon from small airways disease. Mild interlobular septal thickening and patchy, hazy opacities in upper lobes. Consolidation with air bronchograms of the lateral segment of the right middle lobe, consistent with pneumonia. Mild atelectasis in medial segment of right middle lobe. Also, opacities of atelectasis and/or consolidation are present in the anterior right lower lobe and left lower lobe extending along the distal left major fissure. Trace right pleural effusion is present. No pneumothorax. CARDIOVASCULAR: The heart size is normal. No inward bowing of the interventricular septum. No pericardial effusion. MEDIASTINUM: Chronic prominence of the mediastinal fat. No mediastinal mass. The esophagus has normal wall thickness. The visualized portion of the thyroid gland is unremarkable. LYMPHATICS: No axillary lymphadenopathy. Mildly lymph nodes at both ju, similar compared to 04/08/2017. The largest right hilar lymph node is 1.6 cm short axis dimension, compared to 1.4 cm on 04/08/2017. 1.2 cm right paratracheal lymph node at the level of the top of the aortic arch is stable compared to 04/08/2017. Also, stable appearance of the chronically enlarged lymph nodes in the prevascular space, precarinal area and subcarinal area of the mediastinum. UPPER ABDOMEN: No acute findings. No reflux of contrast into the inferior vena cava. OSSEOUS STRUCTURES: No acute or suspicious osseous abnormality. IMPRESSION: - No evidence of pulmonary embolism. - Chronic and/or recurrent inflammation (or infection) of thickened airway constantino. Query if there is history of asthma. Lungs have mosaic attenuation, suggestive of air trapping phenomenon of small airways disease. Consolidation/pneumonia is present in the the lateral segment of the right middle lobe. Also, opacities from atelectasis and/or pneumonia are present within lower lobes. Trace right pleural effusion. - Chronic hilar and mediastinal lymphadenopathy -- similar in appearance compared to 04/08/2017. DICTATED BY: Philippe Sotomayor MD Assessment/Plan Assessment: 38 yo male with pmhx of diabetes,asthma,HTN, presents with 2-3 day hx of respiratory symptoms (cough,shortness of breath) and is found to have radiological evidence of PNA. He is afebrile albeit a temp of 100.0, with no leukocytosis. His blood pressure is noted to be elevated but without any chest pain or +ve trops,AMS, or vision problems. CT CHEST: - No evidence of pulmonary embolism. - Chronic and/or recurrent inflammation (or infection) of thickened airway constantino. Query if there is history of asthma. Lungs have mosaic attenuation, suggestive of air trapping phenomenon of small airways disease. Consolidation/pneumonia is present in the the lateral segment of the right middle lobe. Also, opacities from atelectasis and/or pneumonia are present within lower lobes. Trace right pleural effusion. - Chronic hilar and mediastinal lymphadenopathy -- similar in appearance compared to 04/08/2017. Impression * Dsypnea on exertion. Even though his PNA and asthma are more likely to cause dsypnea, his symptoms of exertion accompanied by orthopnea,pedal edema and elevated ProBNP is concernig for acute chf. Will need to rule out ACS. * Community acquired PNA. * Hypertension Urgency * Hx of chronic diseases:Asthma, diabetes (last AIC 7.6 one month ago), HTN. Plan Admit to Telemetry for close BP monitoring Carbohydrate diet Restart home Losartan, will maintain a BP drop goal of 20-25% in 24 hrs to avoid precipitiously dropping BP and exposing pt to increase risk of JACOB or stroke. If needed, will use Captopril to lower BP. Echocardiogram Trend troponin and EKGx2 02 supplementation to keep sats above 92% Trc/nebs Azithromycin and Ceftriaxone for CAP Sputum cultures f/u BC x2 Strep pneumo and legionella urine antigen Peak flow measurement q shift after treatments Given the patient clinically is not in acute asthma exacerbation,has tachycardia and elevated BP, and has already rcvd solumedrol 125mg, we will decide tomorrow on steroid dosing Accu check tid/hs Novolog ssc Code status: Full dvt: Enoxaparin As Ranked By This Provider Problem List: 1. Pneumonia Qualifiers Pneumonia type: due to unspecified organism Laterality: right Lung location: unspecified part of lung Qualified Code: J18.9 - Pneumonia, unspecified organism Core Measures/Misc (05/10) Acute Coronary Syndrome ACS Diagnosis: No Congestive Heart Failure Congestive Heart Failure Diagnosis No Cerebrovascular Accident CVA/TIA Diagnosis: No VTE (View Protocol) VTE Risk Factors Acute Medical Illness No Mechanical VTE Prophylaxis d/t N/A MechProphylax Ordered No VTE Pharm Prophylaxis d/t NA PharmProphylax ordered Sepsis (View protocol) Sepsis Present: No If YES complete Sepsis Event Note If YES complete Sepsis Event Note
[2018-05-09 13:55] VITALS: BP 160/74
[2018-05-09 22:14] VITALS: BP 146/88
[2018-05-10 06:44] VITALS: BP 168/86
--- NOTE | 2018-05-10 07:16 | PN- Housestaff ---
Zahira Culver 05/10/18 0716: Subjective Follow-up For: Pneumonia, community-acquired Dyspnea on exertion Subjective: Afebrile overnight. Patient is seen and examined this morning. Patient states his breathing has improved this morning. Patient notes he has been ambulating without difficulty and having normal bowel movements. Patient does not report any cough or shortness of breath today. Patient is sitting up in bed without difficulty. Patient has no acute concerns today. Review of Systems Constitutional: Reports: see HPI. Objective Last 24 Hrs of Vital Signs/I&O Vital Signs Date Time Temp Pulse Resp B/P B/P Pulse O2 O2 Flow FiO2 Mean Ox Delivery Rate 05/10 1049 92 162/86 05/10 0755 92 Room Air 05/10 0644 98.4 96 24 168/86 95 05/10 0000 95 Nasal 2.0L Cannula 05/09 2225 Nasal 2.0L Cannula 05/09 2214 98.1 95 24 146/88 93 05/09 1600 95 Nasal 2.0L Cannula Intake & Output 05/10 1600 05/10 0800 05/10 0000 Intake Total 200 600 Output Total 200 Balance 200 400 Intake, Oral 200 600 Output, Urine 200 Patient 295 lb Weight Physical Exam General Appearance: Alert, Oriented X3, Cooperative, No Acute Distress Skin: No Rashes, No Breakdown Skin Temp/Moisture Exam: Warm/Dry HEENT: Atraumatic Neck: Supple Cardiovascular: Regular Rate, Normal S1, Normal S2 Lungs: decreased breath sounds; rhonchi with some wheezing noted Abdomen: Soft, No Tenderness Neurological: Normal Speech Extremities: 1+ non-pitting edema b/l LE Assessment/Plan Assessment: CT CHEST: - No evidence of pulmonary embolism. - Chronic and/or recurrent inflammation (or infection) of thickened airway constantino. Query if there is history of asthma. Lungs have mosaic attenuation, suggestive of air trapping phenomenon of small airways disease. Consolidation/pneumonia is present in the the lateral segment of the right middle lobe. Also, opacities from atelectasis and/or pneumonia are present within lower lobes. Trace right pleural effusion. - Chronic hilar and mediastinal lymphadenopathy -- similar in appearance compared to 04/08/2017. 38 yo male with pmhx of diabetes,asthma,HTN, presents with 2-3 day hx of respiratory symptoms (cough,shortness of breath) and is found to have radiological evidence of PNA. He is afebrile albeit a temp of 100.0, with no leukocytosis. His blood pressure is noted to be elevated but without any chest pain or +ve trops,AMS, or vision problems. Patient admitted to telemetry for the following reasons: #Pneumonia -Patient with sx. of cough and shortness of breath -IV antibiotics Ceftriaxone and Azithromycin -Recent leukocytosis 11.2 -Strep pneumo and Legionella antigen negative #Dyspnea on exertion -Even though his PNA and asthma are more likely to cause dsypnea, his symptoms of exertion accompanied by orthopnea,pedal edema and elevated ProBNP is concernig for acute chf -Consulted cardiology -follow up ECHO #Hypertension Urgency -Increased Losartan from 50mg to 75 mg -follow up BP #Diabetes mellitus -Insulin sliding scale -AccuChecks -last AIC 7.6 one month prior; 05/10 HgA1C 8.1 -Holding home dose of Metformin Plan Admit to Telemetry for close BP monitoring Carbohydrate diet Restart home Losartan, will maintain a BP drop goal of 20-25% in 24 hrs to avoid precipitiously dropping BP and exposing pt to increase risk of JACOB or stroke. If needed, will use Captopril to lower BP. Echocardiogram Trend troponin and EKGx2 02 supplementation to keep sats above 92% Trc/nebs Azithromycin and Ceftriaxone for CAP Sputum cultures f/u BC x2 Strep pneumo and legionella urine antigen Peak flow measurement q shift after treatments Given the patient clinically is not in acute asthma exacerbation,has tachycardia and elevated BP, and has already rcvd solumedrol 125mg, we will decide tomorrow on steroid dosing Accu check tid/hs Novolog ssc Code status: Full dvt: Enoxaparin Problem List: 1. Pneumonia 2. Hypertensive urgency 3. Asthma 4. Dyspnea on exertion 5. Diabetes mellitus Pain Ratin Pain Location: na Pain Goal: Remain pain free Pain Plan: na Tomorrow's Labs & Rationales: routine Nae Hitchcock MD 05/10/18 1337: Attending MD Review Statement Attending Statement Attending MD Statement: examined this patient, discuss w/resident/PA/CHEMICAL PROCESS OPERATOR, agreed w/resident/PA/CHEMICAL PROCESS OPERATOR, reviewed EMR data (avail) Attending Assessment/Plan: Doing well, no complaints, will continue anti-hypertensive regimen, increase dose of Losartan, continue antibiotics, sputum culture, hold off on steroids, nebulizer treatments, continue home meds, DVT PPx
[2018-05-10 08:27] LABS: ABSOLUTE BASOPHIL COUNT 0 /CUMM (0.0-0.2); ABSOLUTE EOSINOPHIL COUNT 0 /CUMM (0.0-0.7); ABSOLUTE GRANULOCYTE CT 9.4 /CUMM (1.4-6.5); ABSOLUTE LYMPH COUNT 1.1 /CUMM (1.2-3.4); ABSOLUTE MONOCYTE COUNT 0.7 /CUMM (0.10-0.60); BASOPHIL % 0.2 % (0.0-2.0); EOSINOPHIL % 0 % (0-5); GRANULOCYTE % 83.8 % (42.2-75.2); HEMATOCRIT 48.5 % (42-52); MEAN CORPUSCULAR HGB 27.4 PG (27.0-31.0); MEAN CORPUSCULAR HGB CONC 32.3 G/DL (33.0-37.0); MEAN CORPUSCULAR VOLUME 84.9 FL (80.0-94.0); MEAN PLATELET VOLUME 8.3 FL (7.4-10.4); PLATELET COUNT 293 /CUMM (130-400); RBC DISTRIBUTION WIDTH 14.9 % (11.5-14.5); RED BLOOD CELL CT 5.71 /CUMM (4.70-6.10); WHITE BLOOD CELL COUNT 11.2 /CUMM (4.8-10.8)
[2018-05-10 14:55] VITALS: BP 156/82
[2018-05-10 21:49] VITALS: BP 140/100
[2018-05-11 06:52] VITALS: BP 170/100
--- NOTE | 2018-05-11 07:38 | PN- Housestaff ---
Zahira Culver 05/11/18 0738: Subjective Follow-up For: Pneumonia, community-acquired Dyspnea on exertion Subjective: Afebrile overnight. Patient is seen and examined this morning. Patient reports he has been experiencing some wheezing and chest tightness from breathing. Patient however denies any shortness of breath or cough. Patient reports he has been ambulating without difficulty and denies and leg pains. Patient further denies any chest pain, palpitations, diarrhea, and n/v. Review of Systems Constitutional: Reports: see HPI. Objective Last 24 Hrs of Vital Signs/I&O Vital Signs Date Time Temp Pulse Resp B/P B/P Pulse O2 O2 Flow FiO2 Mean Ox Delivery Rate 05/11 0759 96 Nasal 2.0L Cannula 05/11 0652 98.3 88 20 170/100 93 Room Air 05/11 0000 94 Nasal 1.0L Cannula 05/10 2149 98.7 93 20 140/100 99 Room Air 05/10 1710 98 Nasal 2.0L Cannula 05/10 1537 92 174/88 05/10 1455 97.6 87 18 156/82 97 Room Air 05/10 1049 92 162/86 Intake & Output 05/11 1600 05/11 0800 05/11 0000 Intake Total 600 Output Total Balance 600 Intake, Oral 600 Patient 309 lb Weight Physical Exam General Appearance: Alert, Oriented X3, Cooperative, No Acute Distress Skin: No Rashes, No Breakdown Skin Temp/Moisture Exam: Warm/Dry HEENT: Atraumatic Neck: Supple, No JVD Cardiovascular: Regular Rate, Normal S1, Normal S2 Lungs: wheezing in b/l lung lafleur Abdomen: Soft, No Tenderness Neurological: Normal Speech Extremities: 1+ non-pitting edema B/L LE Assessment/Plan Assessment: CT CHEST: - No evidence of pulmonary embolism. - Chronic and/or recurrent inflammation (or infection) of thickened airway constantino. Query if there is history of asthma. Lungs have mosaic attenuation, suggestive of air trapping phenomenon of small airways disease. Consolidation/pneumonia is present in the the lateral segment of the right middle lobe. Also, opacities from atelectasis and/or pneumonia are present within lower lobes. Trace right pleural effusion. - Chronic hilar and mediastinal lymphadenopathy -- similar in appearance compared to 04/08/2017. 38 yo male with pmhx of diabetes,asthma,HTN, presents with 2-3 day hx of respiratory symptoms (cough,shortness of breath) and is found to have radiological evidence of PNA. He is afebrile albeit a temp of 100.0, with no leukocytosis. His blood pressure is noted to be elevated but without any chest pain or +ve trops,AMS, or vision problems. Patient admitted to telemetry for the following reasons: #Pneumonia -Patient with sx. of cough and shortness of breath -IV antibiotics Ceftriaxone and Azithromycinl; transitioning to Augmentin 875 mg po BID -Recent leukocytosis 11.2 -Strep pneumo and Legionella antigen negative -Patient has wheezing on examination; started Methylprednisolone 40 mg IV BID #Dyspnea on exertion -Even though his PNA and asthma are more likely to cause dsypnea, his symptoms of exertion accompanied by orthopnea,pedal edema and elevated ProBNP is concernig for acute chf -Consulted cardiology -follow up ECHO #Hypertension Urgency -Increased Losartan from 50mg to 75 mg, increased to 100 mg qd -Started Amlodipine 5 mg qd -follow up BP #Diabetes mellitus -Insulin sliding scale -AccuChecks -last AIC 7.6 one month prior; 05/10 HgA1C 8.1 -Holding home dose of Metformin Code Status: Full Code Heart Healthy Diet DVT PPx. Problem List: 1. Pneumonia 2. Hypertensive urgency 3. Asthma 4. Dyspnea on exertion 5. Diabetes mellitus Pain Ratin Pain Location: na Pain Goal: Remain pain free Pain Plan: prn meds Tomorrow's Labs & Rationales: routine Nae Hitchcock MD 05/11/18 1132: Attending MD Review Statement Attending Statement Attending MD Statement: examined this patient, discuss w/resident/PA/ROOF PAINTER, agreed w/resident/PA/ROOF PAINTER, reviewed EMR data (avail) Attending Assessment/Plan: 38M PMH HTN, asthma, morbid obesity admitted with shortness of breath and cough in the setting of RML pneumonia, also found to be in hypertensive urgency. Patient feels a bit better today. He is, however, wheezing today, unlike yesterday. He is still coughing up green sputum. He remains hypertensive overnight, 170/100 this morning. He denies chest pain, is afebrile. He desaturates to low 90's overnight, likely secondary to undiagnosed OHS or DONI. 1. RML pneumonia 2. Asthma exacerbation 3. Hypertensive urgency 4. Hypoxia Plan - Continue on telemetry - Continue Ceftriaxone and Azithromycin - Follow sputum culture - Prednisone 60mg with slow taper - Increase Losartan to 100mg - Start Amlodipine 5mg and increase to 10mg if still hypertensive - Nebulizer treatments - Follow cardiology recommendations - Outpatient sleep study - DVT PPx - Anticipated discharge later today or tomorrow morning pending stabilization of BP and improvement in wheezing
[2018-05-11 08:34] LABS: ABSOLUTE BASOPHIL COUNT 0 /CUMM (0.0-0.2); ABSOLUTE EOSINOPHIL COUNT 0.1 /CUMM (0.0-0.7); ABSOLUTE GRANULOCYTE CT 7.6 /CUMM (1.4-6.5); ABSOLUTE LYMPH COUNT 2.3 /CUMM (1.2-3.4); ABSOLUTE MONOCYTE COUNT 0.5 /CUMM (0.10-0.60); BASOPHIL % 0.3 % (0.0-2.0); EOSINOPHIL % 0.8 % (0-5); GRANULOCYTE % 72.4 % (42.2-75.2); HEMATOCRIT 46.7 % (42-52); MEAN CORPUSCULAR HGB 27.4 PG (27.0-31.0); MEAN CORPUSCULAR HGB CONC 32.2 G/DL (33.0-37.0); MEAN CORPUSCULAR VOLUME 85.2 FL (80.0-94.0); PLATELET COUNT 277 /CUMM (130-400); RED BLOOD CELL CT 5.48 /CUMM (4.70-6.10); WHITE BLOOD CELL COUNT 10.5 /CUMM (4.8-10.8)
--- NOTE | 2018-05-11 09:40 | Cons- Cardiology ---
General Information and HPI Consulting Request Date of Consult: 05/11/18 Requested By: Nae Hitchcock MD Reason for Consult: Accelerated hypertension Source of Information: patient, old records Exam Limitations: no limitations History of Present Illness: The patient is a 38-year-old male with a past history of hypertension and obesity. He was here about 1 year ago with elevated blood pressure and hemoglobin A1c. He was sent out on just labetalol for blood pressure medication. He is now readmitted with shortness of breath and asthmatic bronchitis and was found to have very elevated blood pressure. He is now on losartan 75 mg daily. His blood pressure is improved but is still elevated in the 140-170/100 range. He has no complaints of chest pain, palpitations, dizziness, syncope. He does have some mild edema. He states he gave up smoking about 1 month ago. His cardiac enzymes are negative and there have been no arrhythmias. He did not follow-up with any physician after his last hospitalization because of insurance issues. Allergies/Medications Allergies: Coded Allergies: No Known Allergies (01/01/18) Home Med List: Albuterol Sulfate (Proventil Hfa) 90 MCG HFA.AER.AD 2 PUF INH Q4 sob Amlodipine Besylate 5 MG TABLET 1 TAB PO DAILY HIGH BLOOD PRESSURE Amoxicillin/Potassium Clav (Augmentin 875-125 Tablet) 875 MG-125 MG TABLET 1 TAB PO BID PNEUMONIA Losartan Potassium (Cozaar) 50 MG TABLET 2 TAB PO DAILY HIGH BLOOD PRESSURE Metformin HCl (Metformin HCl ER) 500 MG TAB.ER.24 1 TAB PO DAILY DIABITIES Prednisone 10 MG TABLET 1 TAB PO DAILY ASTHMA EXACERBATION 6 TABS 05/13- 5 TAB 05/15- 4 TAB 05/17- 3 TAB 05/19-27 2 TAB 05/21- 1 TAB 05/23-05/24 Current Medications: Current Medications Sig/Tiana Start time Last Medication Dose Route Stop Time Status Admin Albuterol Sulfate 3 ML EVERY 4 HRS/AWAKE 05/10 0800 AC 05/11 INH 0756 Azithromycin 500 MG DAILY 05/10 1015 AC 05/11 PO 0822 Ceftriaxone Sodium 1,000 MG DAILY 05/10 1015 AC 05/11 IV 0822 Enoxaparin Sodium 40 MG DAILY 05/10 0900 AC SC Insulin Aspart 0 TIDAC 05/09 1700 AC 05/10 SC 1229 Losartan Potassium 75 MG DAILY 05/11 0900 AC 05/11 PO 0822 Losartan Potassium 25 MG ONCE ONE 05/10 1400 DC 05/10 PO 05/10 1401 1537 Losartan Potassium 50 MG DAILY 05/10 1000 DC 05/10 PO 1049 Methylprednisolone 40 MG Q12 05/11 0900 AC 05/11 IV 0822 Review of Systems Review of Systems: No other complaints Past History Travel History Traveled to [place] past 21 day No Medical History Blood Transfusion Hx: No Neurological: NONE EENT: NONE Cardiovascular: hypertension Respiratory: asthma Gastrointestinal: NONE Hepatic: NONE Renal: NONE Musculoskeletal: NONE Psychiatric: NONE Endocrine: DMII Blood Disorders: NONE Cancer(s): NONE TECHNOLOGY ANALYST/Reproductive: NONE Surgical History Surgical History: 1 Family History Relations & Conditions If Any: FATHER (MOTHER ( Psychosocial History Where Do You Live? Home Services at Home: None Smoking Status: Former Smoker ETOH Use: denies use Illicit Drug Use: denies illicit drug use Functional Ability ADLs Independent: dressing, eating, toileting, bathing. Ambulation: independent IADLs Independent: shopping, housework, finances, food prep, telephone, transportation , medication admin. Exam & Diagnostic Data Vital Signs and I&O Vital Signs Date Time Temp Pulse Resp B/P B/P Pulse O2 O2 Flow FiO2 Mean Ox Delivery Rate 05/11 0822 91 168/98 05/11 0759 96 Nasal 2.0L Cannula 05/11 0652 98.3 88 20 170/100 93 Room Air 05/11 0000 94 Nasal 1.0L Cannula 05/10 2149 98.7 93 20 140/100 99 Room Air 05/10 1710 98 Nasal 2.0L Cannula 05/10 1537 92 174/88 05/10 1455 97.6 87 18 156/82 97 Room Air 05/10 1049 92 162/86 Intake & Output 05/11 1600 05/11 0800 05/11 0000 05/10 1600 05/10 0800 05/10 0000 Intake Total 800 600 460 200 600 Output Total 200 Balance 800 600 460 200 400 Intake, Oral 800 600 460 200 600 Output, Urine 200 Patient 309 lb 295 lb Weight Physical Exam: Morbidly obese young middle-aged male in no acute distress HEENT exam normal Chest mild expiratory wheezing especially left posterior chest Heart regular rhythm, no murmurs Extremities trace to 1+ edema of ankles Labs/Ulisses Results: Laboratory Tests 05/11 05/10 0640 0630 Chemistry Sodium (137 - 145 mmol/L) 140 138 Potassium (3.5 - 5.1 mmol/L) 4.5 4.4 Chloride (98 - 107 mmol/L) 100 100 Carbon Dioxide (22 - 30 mmol/L) 31 H 31 H Anion Gap (5 - 16) 8 7 BUN (9 - 20 mg/dL) 19 18 Creatinine (0.7 - 1.2 mg/dL) 0.9 0.7 Estimated GFR (>60 ml/min) > 60 > 60 BUN/Creatinine Ratio (7 - 25 %) 21.1 25.7 H Hemoglobin A1c (4.2 - 5.8 %) 8.1 H Magnesium (1.6 - 2.3 mg/dL) 1.9 2.0 Hematology CBC w Diff NO MAN DIFF REQ NO MAN DIFF REQ WBC (4.8 - 10.8 /CUMM) 10.5 11.2 H RBC (4.70 - 6.10 /CUMM) 5.48 5.71 Hgb (14.0 - 18.0 G/DL) 15.0 15.6 Hct (42 - 52 %) 46.7 48.5 MCV (80.0 - 94.0 FL) 85.2 84.9 MCH (27.0 - 31.0 PG) 27.4 27.4 MCHC (33.0 - 37.0 G/DL) 32.2 L 32.3 L RDW (11.5 - 14.5 %) 15.0 H 14.9 H Plt Count (130 - 400 /CUMM) 277 293 MPV (7.4 - 10.4 FL) 8.0 8.3 Gran % (42.2 - 75.2 %) 72.4 83.8 H Lymphocytes % (20.5 - 51.1 %) 21.9 9.6 L Monocytes % (1.7 - 9.3 %) 4.6 6.4 Eosinophils % (0 - 5 %) 0.8 0 Basophils % (0.0 - 2.0 %) 0.3 0.2 Absolute Granulocytes (1.4 - 6.5 /CUMM) 7.6 H 9.4 H Absolute Lymphocytes (1.2 - 3.4 /CUMM) 2.3 1.1 L Absolute Monocytes (0.10 - 0.60 /CUMM) 0.5 0.7 H Absolute Eosinophils (0.0 - 0.7 /CUMM) 0.1 0 Absolute Basophils (0.0 - 0.2 /CUMM) 0 0 05/09 05/09 05/09 1515 1141 0936 Chemistry Sodium (137 - 145 mmol/L) 138 Potassium (3.5 - 5.1 mmol/L) 3.6 Chloride (98 - 107 mmol/L) 101 Carbon Dioxide (22 - 30 mmol/L) 29 Anion Gap (5 - 16) 8 BUN (9 - 20 mg/dL) 11 Creatinine (0.7 - 1.2 mg/dL) 0.8 Estimated GFR (>60 ml/min) > 60 BUN/Creatinine Ratio (7 - 25 %) 13.8 Glucose (65 - 99 mg/dL) 187 H Calcium (8.4 - 10.2 mg/dL) 8.3 L Magnesium (1.6 - 2.3 mg/dL) 1.6 Total Bilirubin (0.2 - 1.3 mg/dL) 1.1 AST (17 - 59 U/L) 27 ALT (21 - 72 U/L) 34 Alkaline Phosphatase (< 127 U/L) 69 Troponin I (<0.11 ng/ml) 0.02 0.04 Pfa-[id number] Pept (<125 pg/mL) 2460 H Total Protein (6.3 - 8.2 g/dL) 5.8 L Albumin (3.5 - 5.0 g/dL) 3.2 L Globulin (1.9 - 4.2 gm/dL) 2.6 Albumin/Globulin Ratio (1.1 - 2.2 %) 1.2 Urines Urinalysis LIGHT H Urine Color (YEL,AMB,STR) YEL Urine Clarity (CLEAR) CLEAR Urine pH (5.0 - 8.0) 6.5 Ur Specific [place] (1.001 - 1.035) 1.025 Urine Protein (NEG,<30 MG/DL) >=300 H Urine Ketones (NEG) NEG Urine Nitrite (NEG) NEG Urine Bilirubin (NEG) NEG Urine Urobilinogen (0.1 - 1.0 EU/dl) 0.2 Ur Leukocyte Esterase (NEG) NEG Ur Microscopic SEDIMENT EXAMINED Urine RBC (0 - 5 /HPF) 1-3 Urine WBC (0 - 2 /HPF) 3-5 H Ur Epithelial Cells (NONE,FEW) RARE Granular Casts (NONE /LPF) FEW H Urine Mucus (FEW,NONE) RARE Urine Hemoglobin (NEG) SMALL H Urine Glucose (N MG/DL) NEG Diagnostic Data EKG Results EKG on 05/09/2018 at 7:56 AM shows sinus tachycardia rate 113 and diffuse nonspecific T changes. EKG on 916 at 1534 shows sinus rhythm 78, possible left atrial abnormality and very minor T changes. CXR Results PATIENT: KAEL SINGH PRESENT AGE: 38 PATIENT ACCOUNT NO: [id number] : 81 LOCATION: [facility] ORDERING PHYSICIAN: Aris MACK SERVICE DATE: 05/09/18 EXAM TYPE: RAD - XRY-CHEST XRAY, TWO VIEWS EXAMINATION: XR CHEST CLINICAL INFORMATION: Cough, shortness of breath, fever and leg edema. COMPARISON: CXR from 09/19/2016 and 04/15/2018. Chest CT from 04/08/2017. TECHNIQUE: 2 views of the chest were obtained. FINDINGS: Lungs are well expanded. The bronchial constantino are thickened, bilaterally. This could be a manifestation of asthma or airway infection, if in the right clinical context. Patchy opacity is present within the right middle lobe, suggestive of pneumonia. No pneumothorax or pleural effusion. Cardiomediastinal silhouette is chronically enlarged. The visualized bones are intact. IMPRESSION: - Bronchial wall thickening in both lungs from inflammation or infection of the airways. - Patchy opacity in right middle lobe is consistent with pneumonia. DICTATED BY: Philippe Sotomayor MD DATE/TIME DICTATED:05/09/181001 SALVAGE MEND WORKER:TAYLOR DATE/TIME TRANSCRIBED:05/09/181001 CONFIDENTIAL, DO NOT COPY WITHOUT APPROPRIATE AUTHORIZATION. <Electronically signed in Other Vendor System> SIGNED BY: Philippe Sotomayor MD 05/09/18 1009 Assessment/Plan Assessment/Plan The patient is a 38-year-old male with hypertension, diabetes, bronchitis. His blood pressure is still not well controlled. I recommend increasing losartan to 100 mg daily. I would add amlodipine 5 mg daily. He might also benefit from a thiazide diuretic. As his cardiac evaluation is negative telemetry can be discontinued. Consult Acknowledgment - Thank you for your consult request.
--- NOTE | 2018-05-11 11:39 | Patient Discharge Instructions ---
Discharge Instructions General Discharge Information You were seen/treated for: Pneumonia High Blood Pressure You had these procedures: Chest CTA CXR Watch for these problems: If you experience any worsening shortness of breath, coughing, and/or wheezing please follow up with your PCP. Special Instructions: Please follow up with your PCP within one week. Please follow up as an outpatient to have a Sleep Study performed. Please take your Prednisone steroid taper as directed. Please follow up with your PCP/Driver'S License Examiner to have a renal doppler ultrasound study performed. Please continue to take your home medications. Diet Continue normal diet: No Recommended Diet: Diabetic Activity Full Activity/No Limits: No Activity Self Limited: Yes Acute Coronary Syndrome Inclusion Criteria At DC or during hospital stay patient has or had the following: ACS DIAGNOSIS No Discharge Core Measures Meds if any: Prescribed or Continued at Discharge Meds if any: NOT Prescribed or Continued at Discharge Congestive Heart Failure Inclusion Criteria At DC or during hospital stay patient has or had the following: CHF DIAGNOSIS No Discharge Core Measures Meds if any: Prescribed or Continued at Discharge Meds if any: NOT Prescribed or Continued at Discharge Cerebrovascular accident Inclusion Criteria At DC or during hospital stay patient has or had the following: CVA/TIA Diagnosis No Discharge Core Measures Meds if any: Prescribed or Continued at Discharge Meds if any: NOT Prescribed or Continued at Discharge Venous thromboembolism Inclusion Criteria VTE Diagnosis No VTE Type NONE VTE Confirmed by (Test) NONE Discharge Core Measures - Per Current guidelines, there needs to be overlap - treatment for the first 5 days of Warfarin therapy. - If discharged on Warfarin prior to 5 days of - overlap therapy, the patient will need to be - assessed for post discharge needs including - *Post discharge parental anticoagulation - *Warfarin and/or parental anticoagulation education - *Follow up date to check INR post discharge At least 5 days overlap therapy as Inpatient No Meds if any: Prescribed or Continued at Discharge Note: Overlap Therapy is Warfarin and Anticoagulant Meds if any: NOT Prescribed or Continued at Discharge
[2018-05-11] MEDS ORDERED: COZAAR50 M1 PO (11:57)
[2018-05-11] MEDS ORDERED: AZITHROMYCIN500 M3 PO (11:59)
[2018-05-11] MEDS ORDERED: AMLODIPINE BESYL5 M1 PO (11:59)
[2018-05-11] MEDS ORDERED: PREDNISONE10 M2 PO (12:03)
--- NOTE | 2018-05-11 12:14 | Discharge Summary ---
Visit Information Visit Dates Admission Date: 05/09/18 Discharge Date: 05/14/18 Hospital Course Course Attending Physician: Nae Hitchcock MD Primary Care Physician: Patient Has No Primary Care Dr Hospital Course: 38 yo male with pmhx of diabetes,asthma,HTN, presents with 2-3 day hx of respiratory symptoms (cough,shortness of breath) and is found to have radiological evidence of PNA. He is afebrile albeit a temp of 100.0, with no leukocytosis. His blood pressure is noted to be elevated but without any chest pain or +ve trops,AMS, or vision problems. 1. Pneumonia/Asthma exacerbation with associated elevated blood pressures -Patient intially received Solumedrol 125 mg IV and nebulizer treatments in the ED. Patient admitted to the telemetry floor due to symptoms of pneumonia and also symptoms of exertional dsypnea with reported orthopnea. Patient had an elevated proBNP at 2460 and cardiology was consulted. Patient started on Ceftriaxone and Azithromycin for Community-acquired pneumonia. Patient also had elevated blood pressures and so his blood pressure medications have been increased and supplemented further including: Losartan dose 100 mg, Chrlorthalidone 50 mg, Hydralazine 25 mg TID, and Amlodipine 10 mg. Patient given SoluMedrol 40 mg IV q12 on 05/11 due to wheezing on examination and subsequently transitioned to PO Prednisone. Patient received an steroid taper dosage to take as an outpatient. Patient to have close follow up with PCP and referred for a Sleep Study due to concern for sleep apnea-like symptoms. Patient told to have a follow up Renal artery doppler study performed by PCP/Nephrology. Patient subsequently discharged home. Allergies: Coded Allergies: No Known Allergies (01/01/18) Significant Procedures: CT CHEST: - No evidence of pulmonary embolism. - Chronic and/or recurrent inflammation (or infection) of thickened airway constantino. Query if there is history of asthma. Lungs have mosaic attenuation, suggestive of air trapping phenomenon of small airways disease. Consolidation/pneumonia is present in the the lateral segment of the right middle lobe. Also, opacities from atelectasis and/or pneumonia are present within lower lobes. Trace right pleural effusion. - Chronic hilar and mediastinal lymphadenopathy -- similar in appearance compared to 04/08/2017. Disposition Summary Disposition Principal Diagnosis: Pneumonia, Community Acquired Additional Diagnosis: Dyspnea on Exertion Hypertension Hx. Diabetes Discharge Disposition: home or self care Discharge Instructions General Discharge Information Code Status: Full Code Patient's Diet: Diabetic diet Patient's Activity: Ad christine Follow-Up Instructions/Appts: Please follow up with your PCP within one week. Please follow up as an outpatient to have a Sleep Study performed. Please take your Prednisone steroid taper as directed. Please continue to take your home medications. Medications at Discharge Discharge Medications: Continue taking these medications: Albuterol Sulfate (Proventil Hfa) 90 MCG HFA.AER.AD 2 Puff Inhale through mouth Every 4 hours Qty = 1 Metformin HCl (Metformin HCl ER) 500 MG TAB.ER.24 1 Tablet ORAL DAILY Qty = 30 Start taking the following new medications: Amlodipine Besylate (Amlodipine Besylate) 10 MG TABLET 1 Tablet ORAL DAILY Qty = 30 No Refills Losartan (Cozaar) 100 MG TABLET 1 Tablet ORAL DAILY Qty = 30 No Refills Chlorthalidone (Chlorthalidone) 50 MG TABLET 1 Tablet ORAL DAILY Qty = 30 No Refills Prednisone (Prednisone) 10 MG TABLET 1 Tablet ORAL DAILY Qty = 36 No Refills Instructions: 6 TABS 05/15 5 TAB 05/16-24 4 TAB 05/18- 3 TAB 05/20- 2 TAB 05/22- 1 TAB 05/24-05/25 Hydralazine HCl (Hydralazine HCl) 25 MG TABLET 1 Tablet ORAL THREE TIMES DAILY Qty = 90 No Refills Copies To: no documented PCP Attending MD Review Statement Documenting Attending: Naldo LOPEZ,Nae
[2018-05-11] MEDS ORDERED: AUGMENTIN 875-1 EACH PO (14:04)
[2018-05-11 14:52] VITALS: BP 168/100
--- NOTE | 2018-05-11 16:26 | Discharge Summary ---
Visit Information Visit Dates Admission Date: 05/09/18 Hospital Course Course Attending Physician: Nae Hitchcock MD Primary Care Physician: Patient Has No Primary Care Dr Allergies: Coded Allergies: No Known Allergies (01/01/18) Discharge Instructions General Discharge Information Code Status: Full Code Medications at Discharge Discharge Medications: Continue taking these medications: Albuterol Sulfate (Proventil Hfa) 90 MCG HFA.AER.AD 2 Puff Inhale through mouth Every 4 hours Qty = 1 Metformin HCl (Metformin HCl ER) 500 MG TAB.ER.24 1 Tablet ORAL DAILY Qty = 30 Start taking the following new medications: Amlodipine Besylate (Amlodipine Besylate) 5 MG TABLET 1 Tablet ORAL DAILY Qty = 30 No Refills Prednisone (Prednisone) 10 MG TABLET 1 Tablet ORAL DAILY Qty = 42 No Refills Instructions: 6 TABS 05/13- 5 TAB 05/15-23 4 TAB 05/17-25 3 TAB 05/19-27 2 TAB 05/21-29 1 TAB 05/23-05/24 Amoxicillin/Potassium Clav (Augmentin 875-125 Tablet) 875 MG-125 MG TABLET 1 Tablet ORAL TWICE DAILY Qty = 3 No Refills The following medications have been changed: Old: Losartan Potassium (Cozaar) 50 MG TABLET 1 Tablet ORAL DAILY Qty = 30 New: Losartan Potassium (Cozaar) 50 MG TABLET 2 Tablet ORAL DAILY Qty = 60
--- NOTE | 2018-05-11 18:03 | ECHOCARDIOGRAM REPORT ---
KAEL SINGH Age: 38 : 1980 Gender: M Exam Date: 05/11/2018 10:03 Exam Location: 1 [place] Ht (in): 62 Wt (lb): 268 BSA: 2.38 BP: 168 / 86 Ordering Physician: Leonid Fournier MD Referring Physician: Leonid Fournier MD Technologist: Ralph Loyola [facility] Room Number: 173-1 Indications: Heart failure, unspecified Rhythm: Sinus Technical Quality: Technically difficult study FINDINGS Left Ventricle Mild left ventricular dilatation. Left ventricular wall thickness at upper limits of normal. Left ventricular systolic function is mildly decreased. Estimated ejection fraction is 50%. No obvious regional wall motion abnormalities. Normal left ventricular diastolic filling pattern for age. Right Ventricle The right ventricle is normal in size and function. Right Atrium The right atrium is normal in size. Left Atrium Mild left atrial dilatation. Mitral Valve Structurally normal mitral valve. Trace mitral regurgitation. Aortic Valve Structurally normal aortic valve without significant sclerosis or stenosis. There is no aortic regurgitation. Tricuspid Valve Structurally normal tricuspid valve. Trace tricuspid regurgitation. Right ventricular systolic pressure estimated to be elevated at 35- 40 mmHg. Pulmonic Valve Structurally normal pulmonic valve. There is no pulmonic regurgitation. Pericardium Small non-hemodynamically significant posterior pericardial effusion. No pleural effusion. Great Vessels Normal aortic root dimension. The aortic arch and great vessels are not well seen. CONCLUSIONS Technically difficult and limited study secondary to body habitus. Left ventricular wall thickness at upper limits of normal. Left ventricular systolic function is mildly decreased. Estimated ejection fraction is 50%. Mild left atrial dilatation. Structurally normal mitral valve. Trace mitral regurgitation. Structurally normal aortic valve without significant sclerosis or stenosis. Right ventricular systolic pressure estimated to be elevated at 35- 40 mmHg. Small non-hemodynamically significant posterior pericardial effusion. The aortic arch and great vessels are not well seen. Neil Gonzalez M.D. (Electronically Signed) Final Date: 11 May 2018 18:01 MEASUREMENTS (Male / Female) Normal Values 2D ECHO LV Diastolic Diameter PLAX 5.0 cm 4.2 - 5.9 / 3.9 - 5.3 cm LV Systolic Diameter PLAX 3.8 cm 2.1 - 4.0 cm LV Fractional Shortening PLAX 24.0 % 25 - 46 % LV Ejection Fraction 2D Teich 47.6 % IVS Diastolic Thickness 1.1 cm LVPW Diastolic Thickness 1.1 cm LV Relative Wall Thickness 0.4 RV Internal Dim ED PLAX 3.2 cm 1.9 - 3.8 cm LVOT Diameter 2.4 cm Aortic Root Diameter 2.7 cm LA Systolic Diameter LX 4.5 cm 3.0 - 4.0 / 2.7 - 3.8 cm LA Volume 53.0 cm 18 - 58 / 22 - 52 cm Ascending Aorta Diameter 3.3 cm DOPPLER AV Peak Velocity 141.0 cm/s AV Peak Gradient 8.0 mmHg AV Mean Velocity 90.9 cm/s AV Mean Gradient 4.0 mmHg AV Velocity Time Integral 22.7 cm LVOT Peak Velocity 97.8 cm/s LVOT Peak Gradient 3.8 mmHg LVOT Mean Velocity 61.6 cm/s LVOT Mean Gradient 2.0 mmHg LVOT Velocity Time Integral 14.6 cm LVOT Stroke Volume 66.0 cm AV Area Cont Eq vti 2.9 cm AV Area Cont Eq pk 3.1 cm MV Peak Velocity 112.0 cm/s MV Peak Gradient 5.0 mmHg MV Mean Velocity 60.7 cm/s MV Mean Gradient 2.0 mmHg Mitral E Point Velocity 116.0 cm/s Mitral A Point Velocity 46.9 cm/s Mitral E to A Ratio 2.5 MV PHT Velocity 111.0 cm/s MV Deceleration [place] 659.0 cm/s MV Pressure Half Time 50.5 ms MV Area PHT 4.4 cm MV Deceleration Time 151.0 ms TR Peak Velocity 277.0 cm/s TR Peak Gradient 30.7 mmHg Right Atrial Pressure 10.0 mmHg Pulmonary Artery Systolic Pressure 40.7 mmHg Right Ventricular Systolic Pressure 40.7 mmHg PV Peak Velocity 78.6 cm/s PV Peak Gradient 2.5 mmHg PV Mean Velocity 51.1 cm/s PV Mean Gradient 1.0 mmHg PV Velocity Time Integral 14.0 cm LV E' Lateral Velocity 9.0 cm/s Mitral E to LV E' Lateral Ratio 12.9 LV E' Septal Velocity 6.9 cm/s Mitral E to LV E' Septal Ratio 16.8
[2018-05-11 22:10] VITALS: BP 168/102
[2018-05-12] VITALS (7 sets, daily range): BP systolic 160–190; BP diastolic 100–140
--- NOTE | 2018-05-12 07:46 | PN- Housestaff ---
Zahira Culver 05/12/18 0745: Subjective Follow-up For: Pneumonia, community-acquired Dyspnea on exertion Subjective: Afebrile overnight. Patient is seen and examined this morning. Patient states he feels his breathing is improving. Patient denies any shortness of breath or coughing. Patient does have elevated blood pressure today, rechecked at 160/110. Patient denies any lightheadedness, dizziness, headaches, fevers, chills, and fatigue. No tele events overnight. Review of Systems Constitutional: Reports: see HPI. Objective Last 24 Hrs of Vital Signs/I&O Vital Signs Date Time Temp Pulse Resp B/P B/P Pulse O2 O2 Flow FiO2 Mean Ox Delivery Rate 05/12 0711 98.2 100 20 190/130 92 Nasal Cannula 05/12 0552 190/130 05/12 0552 190/130 05/12 0000 Nasal 1.0L Cannula 05/11 2210 97.6 91 20 168/102 93 Nasal 1.0L Cannula 05/11 1605 92 Room Air 05/11 1452 98.1 90 20 168/100 94 Room Air 05/11 1431 90 168/100 05/11 0822 91 168/98 05/11 0800 Room Air 05/11 0759 96 Nasal 2.0L Cannula Intake & Output 05/12 0800 05/12 0000 05/11 1600 Intake Total 300 240 558 Output Total Balance 300 240 558 Intake, Oral 300 240 558 Output, Urine Patient 307 lb Weight Physical Exam General Appearance: Alert, Oriented X3, Cooperative, No Acute Distress Skin: No Rashes, No Breakdown Skin Temp/Moisture Exam: Warm/Dry HEENT: Atraumatic Neck: Supple, No JVD Cardiovascular: Regular Rate, Normal S1, Normal S2 Lungs: faint wheezing in lung lafleur Abdomen: Soft, No Tenderness Neurological: Normal Speech Assessment/Plan Assessment: ECHO - Technically difficult and limited study secondary to body habitus. Left ventricular wall thickness at upper limits of normal. Left ventricular systolic function is mildly decreased. Estimated ejection fraction is 50%. Mild left atrial dilatation. Structurally normal mitral valve. Trace mitral regurgitation. Structurally normal aortic valve without significant sclerosis or stenosis. Right ventricular systolic pressure estimated to be elevated at 35- 40 mmHg. Small non-hemodynamically significant posterior pericardial effusion. The aortic arch and great vessels are not well seen. CT CHEST: - No evidence of pulmonary embolism. - Chronic and/or recurrent inflammation (or infection) of thickened airway constantino. Query if there is history of asthma. Lungs have mosaic attenuation, suggestive of air trapping phenomenon of small airways disease. Consolidation/pneumonia is present in the the lateral segment of the right middle lobe. Also, opacities from atelectasis and/or pneumonia are present within lower lobes. Trace right pleural effusion. - Chronic hilar and mediastinal lymphadenopathy -- similar in appearance compared to 04/08/2017. 38 yo male with pmhx of diabetes,asthma,HTN, presents with 2-3 day hx of respiratory symptoms (cough,shortness of breath) and is found to have radiological evidence of PNA. He is afebrile albeit a temp of 100.0, with no leukocytosis. His blood pressure is noted to be elevated but without any chest pain or +ve trops,AMS, or vision problems. Patient admitted to telemetry for the following reasons: #Pneumonia -Patient with sx. of cough and shortness of breath -IV antibiotics Ceftriaxone and Azithromycinl; transitioning to Augmentin 875 mg po BID -Recent leukocytosis 11.2 -Strep pneumo and Legionella antigen negative -Patient has wheezing on examination; started Methylprednisolone 40 mg IV BID #Dyspnea on exertion -Even though his PNA and asthma are more likely to cause dsypnea, his symptoms of exertion accompanied by orthopnea,pedal edema and elevated ProBNP is concernig for acute chf -Consulted cardiology -follow up ECHO; estimated EF at 50% #Hypertension Urgency -Increased Losartan from 50mg to 75 mg, increased to 100 mg qd -Started Amlodipine 5 mg qd, increased to Amlodipine 10 mg qd -Started HCTZ 25 mg qd -follow up BP; patient's blood pressure is continually elevated we will try to titrate his blood pressure medications to get the appropriate dosage required to reach a stable, acceptable level #Diabetes mellitus -Insulin sliding scale -AccuChecks -last AIC 7.6 one month prior; 05/10 HgA1C 8.1 -Holding home dose of Metformin Code Status: Full Code Heart Healthy Diet DVT PPx. Problem List: 1. Pneumonia 2. Hypertensive urgency 3. Asthma 4. Dyspnea on exertion 5. Diabetes mellitus Pain Ratin Pain Location: na Pain Goal: Remain pain free Pain Plan: na Tomorrow's Labs & Rationales: routine Nae Hitchcock MD 05/12/18 1143: Attending MD Review Statement Attending Statement Attending MD Statement: examined this patient, discuss w/resident/PA/[employer], agreed w/resident/PA/[employer], reviewed EMR data (avail) Attending Assessment/Plan: 38M PMH HTN, asthma, morbid obesity admitted with shortness of breath and cough in the setting of RML pneumonia, also found to be in hypertensive urgency. Patient feels a bit better today. He is still wheezing, and desaturated to 83% on room air with ambulation, and 88% at rest on room air. He remains hypertensive overnight, 170/100 this morning. He denies chest pain, is afebrile. He desaturates to low 90's overnight, likely secondary to undiagnosed OHS or DONI. 1. RML pneumonia 2. Asthma exacerbation 3. Hypertensive urgency 4. Hypoxia Plan - Continue on telemetry - Continue Ceftriaxone and Azithromycin - Follow sputum culture - Prednisone 60mg with slow taper on discharge - Losartan 100mg, Amlodipine 10mg - Start HCTZ - Nebulizer treatments - Follow cardiology recommendations - Outpatient sleep study - DVT PPx
[2018-05-12 08:40] LABS: ABSOLUTE BASOPHIL COUNT 0 /CUMM (0.0-0.2); ABSOLUTE EOSINOPHIL COUNT 0 /CUMM (0.0-0.7); ABSOLUTE GRANULOCYTE CT 12.3 /CUMM (1.4-6.5); ABSOLUTE MONOCYTE COUNT 0.4 /CUMM (0.10-0.60); BASOPHIL % 0 % (0.0-2.0); EOSINOPHIL % 0 % (0-5); HEMATOCRIT 47.9 % (42-52); MEAN CORPUSCULAR HGB 27.2 PG (27.0-31.0); MEAN CORPUSCULAR HGB CONC 32.4 G/DL (33.0-37.0); MEAN CORPUSCULAR VOLUME 83.9 FL (80.0-94.0); PLATELET COUNT 336 /CUMM (130-400); RBC DISTRIBUTION WIDTH 14.8 % (11.5-14.5); RED BLOOD CELL CT 5.71 /CUMM (4.70-6.10); WHITE BLOOD CELL COUNT 13.7 /CUMM (4.8-10.8)
[2018-05-12 09:18] LABS: GRANULOCYTE % 89.8 % (42.2-75.2)
[2018-05-12] MEDS ORDERED: AMLODIPINE BESY10 M1 PO (09:25)
--- NOTE | 2018-05-12 09:28 | PN- Cardiology ---
Subjective Subjective: The patient is off telemetry. His blood pressure continues to spike. He is now on losartan 100 mg daily and amlodipine 10 mg daily. He was given 1 dose of hydralazine 25 mg this morning for hypertension. His echo shows slightly reduced LV function, possibly due to hypertensive heart disease. Objective Vital Signs and I&Os Vital Signs Date Time Temp Pulse Resp B/P B/P Pulse O2 O2 Flow FiO2 Mean Ox Delivery Rate 05/12 0825 95 Nasal 1.5L Cannula 05/12 0800 93 Nasal 1.5L Cannula 05/12 0711 98.2 100 20 190/130 92 Nasal Cannula 05/12 0552 190/130 05/12 0552 190/130 05/12 0000 Nasal 1.0L Cannula 05/11 2210 97.6 91 20 168/102 93 Nasal 1.0L Cannula 05/11 1605 92 Room Air 05/11 1452 98.1 90 20 168/100 94 Room Air 05/11 1431 90 168/100 Intake & Output 05/12 1600 05/12 0800 05/12 0000 05/11 1600 05/11 0800 05/11 0000 Intake Total 300 240 558 800 600 Output Total Balance 300 240 558 800 600 Intake, Oral 300 240 558 800 600 Output, Urine Patient 307 lb 309 lb Weight Physical Exam: He is in no distress HEENT exam normal Chest mild to moderate inspiratory and expiratory wheezing Heart regular, no murmurs Extremities trace edema Current Medications: Current Medications Sig/Tiana Start time Last Medication Dose Route Stop Time Status Admin Albuterol Sulfate 3 ML EVERY 4 HRS/AWAKE 05/10 0800 AC 05/12 INH 0822 Amlodipine Besylate 10 MG DAILY 05/13 0900 AC PO Amlodipine Besylate 10 MG DAILY 05/12 0900 DC PO Amlodipine Besylate 5 MG DAILY 05/11 1030 DC 05/12 PO 0552 Amoxicillin/ 875 MG Q12 05/12 09 AC 05/12 Clavulanate Potassium PO 0856 Azithromycin 500 MG DAILY 05/10 1015 DC 05/11 PO 0822 Ceftriaxone Sodium 1,000 MG DAILY 05/10 1015 DC 05/11 IV 0822 Enoxaparin Sodium 40 MG DAILY 05/10 0900 AC 05/12 SC 0856 Guaifenesin 600 MG Q12 05/11 2100 AC 05/12 PO 0856 Hydralazine HCl 25 MG ONCE ONE 05/12 0830 DC PO 05/12 0831 Insulin Aspart 0 TIDAC 05/09 1700 AC 05/12 SC 0758 Losartan Potassium 100 MG DAILY 05/12 0900 AC 05/12 PO 0552 Losartan Potassium 75 MG DAILY 05/11 0900 DC 05/11 PO 0822 Magnesium Oxide 0 .STK-MED ONE 05/11 1431 DC PO Magnesium Oxide 400 MG ONE ONE 05/11 1400 DC 05/11 PO 05/11 1401 1431 Methylprednisolone 40 MG Q12 05/11 0900 05/12 IV 0856 Patient Medication 1 ED ONE ONE 05/11 1815 DC 05/11 Teaching ED 05/11 181 1900 Results Last 48 Hrs of Labs/Mics: Laboratory Tests 05/12/18 0616: Anion Gap 9, Estimated GFR > 60, BUN/Creatinine Ratio 22.9, CBC w Diff NO MAN DIFF REQ, RBC 5.71, MCV 83.9, MCH 27.2, MCHC 32.4 L, RDW 14.8 H, MPV 8.0, Gran % 89.8 H, Lymphocytes % 7.5 L, Monocytes % 2.7, Eosinophils % 0, Basophils % 0 , Absolute Granulocytes 12.3 H, Absolute Lymphocytes 1.0 L, Absolute Monocytes 0.4, Absolute Eosinophils 0, Absolute Basophils 0 05/11/18 0640: Anion Gap 8, Estimated GFR > 60, BUN/Creatinine Ratio 21.1, Magnesium 1.9, CBC w Diff NO MAN DIFF REQ, RBC 5.48, MCV 85.2, MCH 27.4, MCHC 32.2 L, RDW 15.0 H, MPV 8.0, Gran % 72.4, Lymphocytes % 21.9, Monocytes % 4.6, Eosinophils % 0.8, Basophils % 0.3, Absolute Granulocytes 7.6 H, Absolute Lymphocytes 2.3, Absolute Monocytes 0.5, Absolute Eosinophils 0.1, Absolute Basophils 0 Recent Imaging Studies: CONCLUSIONS Technically difficult and limited study secondary to body habitus. Left ventricular wall thickness at upper limits of normal. Left ventricular systolic function is mildly decreased. Estimated ejection fraction is 50%. Mild left atrial dilatation. Structurally normal mitral valve. Trace mitral regurgitation. Structurally normal aortic valve without significant sclerosis or stenosis. Right ventricular systolic pressure estimated to be elevated at 35- 40 mmHg. Small non-hemodynamically significant posterior pericardial effusion. The aortic arch and great vessels are not well seen. Neil Gonzalez M.D. (Electronically Signed) Final Date: 11 May 2018 18:01 Assessment/Plan Assessment/Plan The patient's blood pressure is still not well controlled. I recommend continuing on the current regimen and see if his blood pressure stabilizes. If not we can add hydralazine to the regimen. For now I would also add hydrochlorothiazide or chlorthalidone to add to blood pressure control and serve as a diuretic. Continue telemetry? Not applicable (off tele)
[2018-05-12] MEDS ORDERED: LOSARTAN-HCTZ1 EAC2 PO (10:46)
[2018-05-13 00:31] VITALS: BP 164/124
[2018-05-13 05:08] VITALS: BP 200/130
--- NOTE | 2018-05-13 07:58 | PN- Housestaff ---
Zahira Culver 05/13/18 0758: Subjective Follow-up For: Pneumonia, community-acquired Dyspnea on exertion Subjective: Afebrile overnight. Patient is seen and examined this morning. Patient states he is slightly fatigued today upon awakening. Patient however states his breathing feels better this morning. Patient also had episodes of elevated blood pressure again last night. Patient states he did not have any lightheadedness, dizziness, headaches, or chest pain. Patient realizes his blood pressure has been elevated and might likely be related to his breathing. Review of Systems Constitutional: Reports: see HPI. Objective Last 24 Hrs of Vital Signs/I&O Vital Signs Date Time Temp Pulse Resp B/P B/P Pulse O2 O2 Flow FiO2 Mean Ox Delivery Rate 05/13 1035 168/90 05/13 0841 99 Nasal 2.0L Cannula 05/13 0831 188/100 05/13 0831 188/100 05/13 0830 188/100 05/13 0508 98.2 94 20 200/130 99 Nasal Cannula 05/13 0052 88 18 164/124 05/13 0031 164/124 05/13 0000 Nasal 1.5L Cannula 05/12 2222 98.1 94 20 180/140 97 Nasal Cannula 05/12 2011 96 Nasal 1.5L Cannula 05/12 1728 91 168/112 05/12 1636 96 Nasal 1.5L Cannula 05/12 1600 93 Nasal 1.5L Cannula 05/12 1452 97.7 105 20 93 Room Air 05/12 1448 170/110 05/12 1300 160/120 Intake & Output 05/13 1600 05/13 0800 05/13 0000 Intake Total 120 450 Output Total Balance 120 450 Intake, Oral 120 450 Number 1 Bowel Movements Patient 306 lb Weight Physical Exam General Appearance: Alert, Oriented X3, Cooperative, No Acute Distress, overweight Skin: No Rashes Skin Temp/Moisture Exam: Warm/Dry HEENT: Atraumatic Neck: Supple Cardiovascular: Regular Rate, Normal S1, Normal S2 Lungs: faint wheezing noted Abdomen: Soft, No Tenderness Neurological: Normal Speech Extremities: 1+ pitting edema Assessment/Plan Assessment: ECHO - Technically difficult and limited study secondary to body habitus. Left ventricular wall thickness at upper limits of normal. Left ventricular systolic function is mildly decreased. Estimated ejection fraction is 50%. Mild left atrial dilatation. Structurally normal mitral valve. Trace mitral regurgitation. Structurally normal aortic valve without significant sclerosis or stenosis. Right ventricular systolic pressure estimated to be elevated at 35- 40 mmHg. Small non-hemodynamically significant posterior pericardial effusion. The aortic arch and great vessels are not well seen. CT CHEST: - No evidence of pulmonary embolism. - Chronic and/or recurrent inflammation (or infection) of thickened airway constantino. Query if there is history of asthma. Lungs have mosaic attenuation, suggestive of air trapping phenomenon of small airways disease. Consolidation/pneumonia is present in the the lateral segment of the right middle lobe. Also, opacities from atelectasis and/or pneumonia are present within lower lobes. Trace right pleural effusion. - Chronic hilar and mediastinal lymphadenopathy -- similar in appearance compared to 04/08/2017. 38 yo male with pmhx of diabetes,asthma,HTN, presents with 2-3 day hx of respiratory symptoms (cough,shortness of breath) and is found to have radiological evidence of PNA. He is afebrile albeit a temp of 100.0, with no leukocytosis. His blood pressure is noted to be elevated but without any chest pain or +ve trops,AMS, or vision problems. Patient admitted to telemetry for the following reasons: #Pneumonia -Patient with sx. of cough and shortness of breath -IV antibiotics Ceftriaxone and Azithromycinl; transitioning to Augmentin 875 mg po BID -Recent leukocytosis 11.2 -Strep pneumo and Legionella antigen negative -Patient has wheezing on examination; started Methylprednisolone 40 mg IV BID; dc'd IV steroids and started Prednisone taper 53-01-28-30-20-10 mg #Dyspnea on exertion -Even though his PNA and asthma are more likely to cause dsypnea, his symptoms of exertion accompanied by orthopnea,pedal edema and elevated ProBNP is concernig for acute chf -Consulted cardiology -follow up ECHO; estimated EF at 50% #Hypertension Urgency -Increased Losartan from 50mg to 75 mg, increased to 100 mg qd -Started Amlodipine 5 mg qd, increased to Amlodipine 10 mg qd -Started HCTZ 25 mg qd, increased to 50 mg qd -Added Hydralazine 10 mg TID -follow up BP; patient's blood pressure is continually elevated we will try to titrate his blood pressure medications to get the appropriate dosage required to reach a stable, acceptable level -Ordered follow up secondary studies to evaluate patient's resistent hypertension #Diabetes mellitus -Insulin sliding scale -AccuChecks -last AIC 7.6 one month prior; 05/10 HgA1C 8.1 -Holding home dose of Metformin Code Status: Full Code Heart Healthy Diet DVT PPx. Problem List: 1. Pneumonia 2. Hypertensive urgency 3. Asthma 4. Dyspnea on exertion 5. Diabetes mellitus Pain Ratin Pain Location: na Pain Goal: Remain pain free Pain Plan: prn meds Tomorrow's Labs & Rationales: routine Nae Hitchcock MD 05/13/18 1442: Attending MD Review Statement Attending Statement Attending MD Statement: examined this patient, discuss w/resident/PA/[employer], agreed w/resident/PA/[employer], reviewed EMR data (avail) Attending Assessment/Plan: 38M PMH HTN, asthma, morbid obesity admitted with shortness of breath and cough in the setting of RML pneumonia, also found to be in hypertensive urgency. Patient feels a bit better today. He remains hypertensive overnight, 200/100 this morning. He denies chest pain, is afebrile. He desaturates to low 90's overnight, likely secondary to undiagnosed OHS or DONI. 1. RML pneumonia 2. Asthma exacerbation 3. Hypertensive urgency 4. Hypoxia Plan - Continue on telemetry - Continue Ceftriaxone and Azithromycin - Follow sputum culture - Prednisone 60mg with slow taper on discharge - Losartan 100mg, Amlodipine 10mg, HCTZ 50mg - Start Hydralazine 10mg TID - Nebulizer treatments - Follow cardiology recommendations - Outpatient sleep study - DVT PPx - Anticipated discharge tomorrow
--- NOTE | 2018-05-13 08:19 | ULTRASOUND REPORT ---
EXAMINATION: US RETROPERITONEAL COMPLETE (RENAL) CLINICAL INFORMATION: Fatigue, shortness of breath. Dyspnea on exertion. Elevated BP 180/140. Presumptive diagnosis of renal artery stenosis. Hypertension resistant to 3 blood pressure medication. COMPARISON: CTA of the chest dated 05/09/2018. TECHNIQUE: Real-time imaging of the kidneys and bladder. FINDINGS: RIGHT KIDNEY: 12.7 x 6.1 x 4.4 cm (SAG x AP x TRV). The kidney is normal in size, contour, and echogenicity. Renal cortical thickness is normal. No calculi or focal parenchymal lesions. No hydronephrosis. LEFT KIDNEY: 12.0 x 7.0 x 5.8 cm (SAG x AP x TRV). The kidney is normal in size, contour, and echogenicity. Renal cortical thickness is normal. No calculi or focal parenchymal lesions. No hydronephrosis. BLADDER: Partially distended and suboptimally assessed. Bilateral ureteral jets are not demonstrated. Prevoid bladder volume is 55 mL. Patient had just voided prior to the exam. PROSTATE GLAND: Mildly enlarged, measuring 4.0 x 3.4 x 3.8 cm. IMPRESSION: 1. Normal renal ultrasound. No secondary signs of renal artery stenosis. No Doppler assessment of the renal arteries was performed as part of this renal ultrasound. 2. Mildly enlarged prostate gland.
[2018-05-13 08:27] LABS: ABSOLUTE BASOPHIL COUNT 0 /CUMM (0.0-0.2); ABSOLUTE EOSINOPHIL COUNT 0 /CUMM (0.0-0.7); ABSOLUTE GRANULOCYTE CT 13.3 /CUMM (1.4-6.5); ABSOLUTE LYMPH COUNT 1.3 /CUMM (1.2-3.4); ABSOLUTE MONOCYTE COUNT 0.4 /CUMM (0.10-0.60); BASOPHIL % 0 % (0.0-2.0); EOSINOPHIL % 0 % (0-5); HEMATOCRIT 50.2 % (42-52); MEAN CORPUSCULAR HGB 27.4 PG (27.0-31.0); MEAN CORPUSCULAR HGB CONC 32.3 G/DL (33.0-37.0); MEAN CORPUSCULAR VOLUME 84.6 FL (80.0-94.0); MEAN PLATELET VOLUME 8.4 FL (7.4-10.4); PLATELET COUNT 310 /CUMM (130-400); RBC DISTRIBUTION WIDTH 15.1 % (11.5-14.5); RED BLOOD CELL CT 5.94 /CUMM (4.70-6.10); WHITE BLOOD CELL COUNT 15.1 /CUMM (4.8-10.8)
[2018-05-13 10:14] LABS: GRANULOCYTE % 88.6 % (42.2-75.2)
[2018-05-13 10:35] VITALS: BP 168/90
--- NOTE | 2018-05-13 12:55 | PN- Cardiology ---
Subjective Subjective: The patient's breathing is improved. He has no chest pain. His blood pressure remains elevated although seems to be coming down slightly. The last pressure was 168/90. He is now on hydrochlorothiazide, amlodipine, losartan. He was also started on prednisone and has been given supplemental doses of hydralazine. Renal ultrasound was done today and was normal. Objective Vital Signs and I&Os Vital Signs Date Time Temp Pulse Resp B/P B/P Pulse O2 O2 Flow FiO2 Mean Ox Delivery Rate 05/13 1035 168/90 05/13 0841 99 Nasal 2.0L Cannula 05/13 0831 188/100 05/13 0831 188/100 05/13 0830 188/100 05/13 0508 98.2 94 20 200/130 99 Nasal Cannula 05/13 0052 88 18 164/124 05/13 0031 164/124 05/13 0000 Nasal 1.5L Cannula 05/12 2222 98.1 94 20 180/140 97 Nasal Cannula 05/12 2011 96 Nasal 1.5L Cannula 05/12 1728 91 168/112 05/12 1636 96 Nasal 1.5L Cannula 05/12 1600 93 Nasal 1.5L Cannula 05/12 1452 97.7 105 20 93 Room Air 05/12 1448 170/110 05/12 1300 160/120 Intake & Output 05/13 1600 05/13 0800 05/13 0000 05/12 1600 05/12 0800 05/12 0000 Intake Total 120 450 600 300 240 Output Total Balance 120 450 600 300 240 Intake, Oral 120 450 600 300 240 Number 1 Bowel Movements Patient 306 lb 307 lb Weight Physical Exam: He is in no distress Chest shows reduced breath sounds and mild wheezing somewhat improved from yesterday Heart regular rhythm, no murmurs Current Medications: Current Medications Sig/Tiana Start time Last Medication Dose Route Stop Time Status Admin Albuterol Sulfate 3 ML EVERY 4 HRS/AWAKE 05/10 08 AC 05/13 INH 1159 Amlodipine Besylate 10 MG DAILY 05/13 09 AC 05/13 PO 0830 Amlodipine Besylate 5 MG ONCE ONE 05/13 0030 CAN PO 05/13 0031 Amlodipine Besylate 5 MG ONCE ONE 05/12 1530 DC 05/12 PO 05/12 1531 1728 Amoxicillin/ 875 MG Q12 05/12 09 AC 05/13 Clavulanate Potassium PO 09/20 2200 0831 Enoxaparin Sodium 40 MG DAILY 05/10 0900 AC 05/13 SC 0831 Guaifenesin 600 MG Q12 05/11 2100 AC 05/13 PO 0831 Hydralazine HCl 10 MG ONCE ONE 05/13 0530 DC 05/13 PO 05/13 0531 0831 Hydralazine HCl 25 MG ONCE ONE 05/13 0030 DC 05/13 PO 05/13 0031 0052 Hydrochlorothiazide 50 MG DAILY 05/13 0915 AC 05/13 PO 1034 Hydrochlorothiazide 25 MG DAILY 05/12 1015 DC 05/13 PO 0836 Insulin Aspart 0 TIDAC 05/09 1700 AC 05/13 SC 0831 Losartan Potassium 100 MG DAILY 05/12 0900 AC 05/13 PO 0831 Methylprednisolone 40 MG Q12 05/11 0900 DC 05/13 IV 0830 Prednisone 10 MG DAILY 05/24 0900 AC PO 05/26 0859 Prednisone 20 MG DAILY 05/22 0900 AC PO 05/24 0859 Prednisone 30 MG DAILY 05/20 0900 AC PO 05/22 0859 Prednisone 40 MG DAILY 05/18 0900 AC PO 05/20 0859 Prednisone 50 MG DAILY 05/16 0900 AC PO 05/18 0859 Prednisone 60 MG DAILY 05/14 09 AC PO 05/16 09 Prednisone 60 MG DAILY 05/14 09 DC PO 05/26 0914 Prednisone 60 MG DAILY 05/14 09 CAN PO 05/26 09 Results Last 48 Hrs of Labs/Mics: Laboratory Tests 05/13/18 1118: Renin Pending, Aldosterone Pending 05/13/18 0604: Anion Gap 11, Estimated GFR > 60, BUN/Creatinine Ratio 22.5, CBC w Diff NO MAN DIFF REQ, RBC 5.94, MCV 84.6, MCH 27.4, MCHC 32.3 L, RDW 15.1 H, MPV 8.4, Gran % 88.6 H, Lymphocytes % 9.0 L, Monocytes % 2.4, Eosinophils % 0, Basophils % 0 , Absolute Granulocytes 13.3 H, Absolute Lymphocytes 1.3, Absolute Monocytes 0.4, Absolute Eosinophils 0, Absolute Basophils 0 05/12/18 0616: Anion Gap 9, Estimated GFR > 60, BUN/Creatinine Ratio 22.9, CBC w Diff NO MAN DIFF REQ, RBC 5.71, MCV 83.9, MCH 27.2, MCHC 32.4 L, RDW 14.8 H, MPV 8.0, Gran % 89.8 H, Lymphocytes % 7.5 L, Monocytes % 2.7, Eosinophils % 0, Basophils % 0 , Absolute Granulocytes 12.3 H, Absolute Lymphocytes 1.0 L, Absolute Monocytes 0.4, Absolute Eosinophils 0, Absolute Basophils 0 Recent Imaging Studies: PATIENT: KAEL SINGH PRESENT AGE: 38 PATIENT ACCOUNT NO: [id number] : 81 LOCATION: [facility] ORDERING PHYSICIAN: Zahira Culver MD SERVICE DATE: 05/13/18- EXAM TYPE: US - US-RENAL/KIDNEY EXAMINATION: US RETROPERITONEAL COMPLETE (RENAL) CLINICAL INFORMATION: Fatigue, shortness of breath. Dyspnea on exertion. Elevated BP 180/140. Presumptive diagnosis of renal artery stenosis. Hypertension resistant to 3 blood pressure medication. COMPARISON: CTA of the chest dated 05/09/2018. TECHNIQUE: Real-time imaging of the kidneys and bladder. FINDINGS: RIGHT KIDNEY: 12.7 x 6.1 x 4.4 cm (SAG x AP x TRV). The kidney is normal in size, contour, and echogenicity. Renal cortical thickness is normal. No calculi or focal parenchymal lesions. No hydronephrosis. LEFT KIDNEY: 12.0 x 7.0 x 5.8 cm (SAG x AP x TRV). The kidney is normal in size, contour, and echogenicity. Renal cortical thickness is normal. No calculi or focal parenchymal lesions. No hydronephrosis. BLADDER: Partially distended and suboptimally assessed. Bilateral ureteral jets are not demonstrated. Prevoid bladder volume is 55 mL. Patient had just voided prior to the exam. PROSTATE GLAND: Mildly enlarged, measuring 4.0 x 3.4 x 3.8 cm. IMPRESSION: 1. Normal renal ultrasound. No secondary signs of renal artery stenosis. No Doppler assessment of the renal arteries was performed as part of this renal ultrasound. 2. Mildly enlarged prostate gland. DICTATED BY: Peggy Waggoner MD DATE/TIME DICTATED:05/13/18811 [facility] ATTENDANT:TAYLOR DATE/TIME TRANSCRIBED:05/13/18811 CONFIDENTIAL, DO NOT COPY WITHOUT APPROPRIATE AUTHORIZATION. <Electronically signed in Other Vendor System> Assessment/Plan Assessment/Plan The patient seems improved from a respiratory standpoint. His blood pressure is still somewhat elevated but seems to be coming down slightly. I recommend adding hydralazine 10 mg 3 times daily to the regimen. If his blood pressure is still significantly elevated than that dose can be increased to 25 mg 3 times daily. Hopefully this will improve his blood pressure to more reasonable levels. Continue telemetry? Not applicable
[2018-05-13 14:42] VITALS: BP 171/93
[2018-05-13 22:00] VITALS: BP 160/108
[2018-05-14 06:30] VITALS: BP 164/110
--- NOTE | 2018-05-14 07:37 | PN- Housestaff ---
Zahira Culver 05/14/18 0736: Subjective Follow-up For: Pneumonia, community-acquired Dyspnea on exertion Tele-Events Since Last Visit: Not on clinical research monitor. Subjective: Afebrile overnight. Patient is seen and examined this morning. Patient is awake and feeling better today. Patient states he woke up a couple of times overnight to go to the bathroom but otherwise had restful sleep. Patient denies any chest pain, palpitations, shortness of breath, fevers, chills, and fatigue. Review of Systems Constitutional: Reports: see HPI. Objective Last 24 Hrs of Vital Signs/I&O Vital Signs Date Time Temp Pulse Resp B/P B/P Pulse O2 O2 Flow FiO2 Mean Ox Delivery Rate 05/14 0725 164/110 05/14 0630 98.3 103 20 164/110 95 05/13 2200 98.9 100 18 160/108 94 05/13 2037 Room Air 05/13 2034 100 160/108 05/13 1724 170/84 05/13 1620 96 Room Air 05/13 1442 98.3 101 16 171/93 92 Room Air 05/13 1035 168/90 05/13 0841 99 Nasal 2.0L Cannula 05/13 0831 188/100 05/13 0831 188/100 05/13 0830 188/100 Intake & Output 05/14 0800 05/14 0000 05/13 1600 Intake Total Output Total 500 500 Balance -500 -500 Output, Urine 500 500 Physical Exam General Appearance: Alert, Oriented X3, Cooperative, No Acute Distress Skin: No Rashes Skin Temp/Moisture Exam: Warm/Dry HEENT: Atraumatic Neck: Supple, No JVD Cardiovascular: Regular Rate, Normal S1, Normal S2 Lungs: Normal Air Movement, faint wheezing and rhonchi in right lung field Abdomen: Soft, No Tenderness Neurological: Normal Speech Extremities: 1+ non-pitting edema in LE Assessment/Plan Assessment: ECHO - Technically difficult and limited study secondary to body habitus. Left ventricular wall thickness at upper limits of normal. Left ventricular systolic function is mildly decreased. Estimated ejection fraction is 50%. Mild left atrial dilatation. Structurally normal mitral valve. Trace mitral regurgitation. Structurally normal aortic valve without significant sclerosis or stenosis. Right ventricular systolic pressure estimated to be elevated at 35- 40 mmHg. Small non-hemodynamically significant posterior pericardial effusion. The aortic arch and great vessels are not well seen. CT CHEST: - No evidence of pulmonary embolism. - Chronic and/or recurrent inflammation (or infection) of thickened airway constantino. Query if there is history of asthma. Lungs have mosaic attenuation, suggestive of air trapping phenomenon of small airways disease. Consolidation/pneumonia is present in the the lateral segment of the right middle lobe. Also, opacities from atelectasis and/or pneumonia are present within lower lobes. Trace right pleural effusion. - Chronic hilar and mediastinal lymphadenopathy -- similar in appearance compared to 04/08/2017. 38 yo male with pmhx of diabetes,asthma,HTN, presents with 2-3 day hx of respiratory symptoms (cough,shortness of breath) and is found to have radiological evidence of PNA. He is afebrile albeit a temp of 100.0, with no leukocytosis. His blood pressure is noted to be elevated but without any chest pain or +ve trops,AMS, or vision problems. Patient admitted to telemetry for the following reasons: #Pneumonia -Patient with sx. of cough and shortness of breath -IV antibiotics Ceftriaxone and Azithromycinl; transitioning to Augmentin 875 mg po BID -Recent leukocytosis 11.2 -Strep pneumo and Legionella antigen negative -Patient has wheezing on examination; started Methylprednisolone 40 mg IV BID; dc'd IV steroids and started Prednisone taper 90-79-80-30-20-10 mg #Dyspnea on exertion -Even though his PNA and asthma are more likely to cause dsypnea, his symptoms of exertion accompanied by orthopnea,pedal edema and elevated ProBNP is concernig for acute chf -Consulted cardiology -follow up ECHO; estimated EF at 50% #Hypertension Urgency -Increased Losartan from 50mg to 75 mg, increased to 100 mg qd -Started Amlodipine 5 mg qd, increased to Amlodipine 10 mg qd -Started HCTZ 25 mg qd, increased to 50 mg qd; transitioned to Chlorthalidone 50 mg qd -Added Hydralazine 10 mg TID; increased to 25 mg TID -follow up BP; patient's blood pressure is continually elevated we will try to titrate his blood pressure medications to get the appropriate dosage required to reach a stable, acceptable level -Ordered follow up secondary studies to evaluate patient's resistent hypertension; patient told to follow up with PCP/Nephrology to have results of recent labs and to follow up with a renal artery doppler study #Diabetes mellitus -Insulin sliding scale -AccuChecks -last AIC 7.6 one month prior; 05/10 HgA1C 8.1 -Holding home dose of Metformin Code Status: Full Code Heart Healthy Diet DVT PPx. Problem List: 1. Pneumonia 2. Hypertensive urgency 3. Asthma 4. Dyspnea on exertion 5. Diabetes mellitus Pain Ratin Pain Location: na Pain Goal: Remain pain free Pain Plan: na Tomorrow's Labs & Rationales: routine Nae Hitchcock MD 05/14/18 1224: Attending MD Review Statement Attending Statement Attending MD Statement: examined this patient, discuss w/resident/PA/DIRECTOR OF CLINICAL TRIALS, agreed w/resident/PA/DIRECTOR OF CLINICAL TRIALS, reviewed EMR data (avail) Attending Assessment/Plan: 38M PMH HTN, asthma, morbid obesity admitted with shortness of breath and cough in the setting of RML pneumonia, also found to be in hypertensive urgency. Breathing well on room air and saturating 94%. BP still elevated this morning. No complaints from patient. Exam benign, labs reviewed. 1. RML pneumonia 2. Asthma exacerbation 3. Hypertensive urgency 4. Hypoxia Plan - Stable for discharge - Completed antibiotics - Prednisone taper - Losartan 100mg, Amlodipine 10mg, HCTZ 50mg, Hydralazine 25mg TID - Pheo tests sent, will follow up with nephrology as an outpatient for renal artery stenosis testing - Continue inhalers on discharge - PCP, nephrology, cardiology follow up - Outpatient sleep study - Spoke extensively with patient and social media campaign manager regarding medications and signing up for health insurance when the window opens. Patient understands and agrees.
[2018-05-14 08:00] LABS: ABSOLUTE BASOPHIL COUNT 0 /CUMM (0.0-0.2); ABSOLUTE EOSINOPHIL COUNT 0 /CUMM (0.0-0.7); ABSOLUTE GRANULOCYTE CT 12.5 /CUMM (1.4-6.5); ABSOLUTE MONOCYTE COUNT 1.3 /CUMM (0.10-0.60); BASOPHIL % 0.2 % (0.0-2.0); EOSINOPHIL % 0.1 % (0-5); GRANULOCYTE % 74.3 % (42.2-75.2); HEMATOCRIT 51.3 % (42-52); MEAN CORPUSCULAR HGB CONC 32.2 G/DL (33.0-37.0); MEAN CORPUSCULAR VOLUME 83.9 FL (80.0-94.0); PLATELET COUNT 323 /CUMM (130-400); RBC DISTRIBUTION WIDTH 14.8 % (11.5-14.5); RED BLOOD CELL CT 6.12 /CUMM (4.70-6.10); WHITE BLOOD CELL COUNT 16.9 /CUMM (4.8-10.8)
[2018-05-14] MEDS ORDERED: HYDRALAZINE HCL25 M1 PO ×3 (08:49→17:38)
[2018-05-14] MEDS ORDERED: HYDROCHLOROTHIA50 M1 PO (08:52)
[2018-05-14] MEDS ORDERED: COZAAR100 M1 PO ×3 (08:52→17:38)
[2018-05-14 11:53] VITALS: BP 158/110
[2018-05-14] MEDS ORDERED: CHLORTHALIDONE50 M1 PO ×3 (13:37→17:38)
[2018-05-14] MEDS ORDERED: PREDNISONE10 M2 PO ×3 (13:45→17:38)
[2018-05-14 14:15] VITALS: BP 158/92
[2018-05-14] MEDS ORDERED: AMLODIPINE BESY10 M1 PO ×2 (14:42→17:38)
== END 2018-05-14 17:00 | DRG 194 ==
LOC: ERH 08:11 → ERHI 12:21 → 1NO 12:21 → ENRESERV 12:49 → ENTRNSPT 13:12 → 1NO 13:26 → EDTRNSPTSTS 13:35 → CMPTRNSPT 13:49 → 1NO 05-10 07:50 → ENPENDDIS 05-14 14:39 → 1NO 05-14 17:00
PROVIDERS: Emergency Medicine
DX: J18.9 Pneumonia, unspecified organism (principal); Z68.42 Body mass index [BMI] 45.0-49.9, adult; J45.901 Unspecified asthma with (acute) exacerbation; E66.01 Morbid (severe) obesity due to excess calories; E11.9 Type 2 diabetes mellitus without complications; R09.02 Hypoxemia; Z87.891 Personal history of nicotine dependence; I10 Essential (primary) hypertension; Z79.84 Long term (current) use of oral hypoglycemic drugs; Z79.51 Long term (current) use of inhaled steroids; I16.0 Hypertensive urgency
CPT/HCPCS: 1NP; 36415; 36592; 71046; 76775; 81001; 82436; 87040; 87070; 87086; 87449; 87450; 93005; 93010; 93306; 96374; 96375; 99291; J0131; J0456; J0696; J1650; J2920; J2930; J3490; J7040; Q2036